=== PATIENT | male | born 1975 | race Caucasian/White ===

== ENCOUNTER 2020-03-12 21:07 | Emergency (ER) | payer OTHER, SELFPAY ==
--- NOTE | 2020-03-12 | XR_ITS ---
EXAMINATION: XR CHEST CLINICAL INFORMATION: Shortness of breath COMPARISON: Chest x-ray 09/23/2016 TECHNIQUE: Frontal view of the chest was obtained. 9:27 PM FINDINGS: Lung volume is low. There is patchy hazy airspace opacities in the lung bilaterally. CT of chest would be helpful for further assessment. There is no focal dense consolidation. There is no pleural effusion. There is no pneumothorax. Cardiac and mediastinal contours are normal. XR/XR chest 1V IMPRESSION: Low lung volume. Patchy hazy airspace opacities of lungs bilateral. CT chest would be helpful for further assessment.
[2020-03-12 21:14] VITALS: BP 139/88; PULSE 94; RESP 16; TEMP 38; O2SAT 94; BMI 32.7
--- NOTE | 2020-03-12 22:13 | ED.GENADULT ---
HPI - General Adult General Chief complaint: General Medical Stated complaint: Fever/Flu like symptoms Time Seen by Provider: 03/12/20 21:58 Source: patient Mode of arrival: ambulatory Limitations: no limitations History of Present Illness HPI narrative: Patient comes to emergency room complaining of cough, fever and chills, it started 6 days ago. Patient denies known exposure to COVID-19 patients. Patient denies shortness of breath, no chest pain. MD complaint: Cough, fever Related Data Previous Rx's Medication Instructions Recorded albuterol sulfate 2 puff INHALATION Q4-6H PRN #18 g 03/12/20 azithromycin 250 mg PO DAILY 4 Days #4 tab 03/12/20 prednisone 50 mg PO DAILY #4 tab 03/12/20 Allergies Allergy/AdvReac Type Severity Reaction Status Date / Time No Known Allergies Allergy Verified 03/12/20 21:22 Review of Systems Review of Systems: Constitutional : No Weight loss, patient complaining of fever, chills, and body aches ENT/Mouth : No Hearing loss, No Ear Pain, No Nasal Congestion, No Sinus Pain, No Hoarseness, No sore throat, No Rhinorrhea, No Swallowing Difficulty Eyes: No Eye Pain, No Swelling, No Redness, No Foreign Body, No Discharge, No Vision Changes Cardiovascular : No Chest Pain, No SOB, No Dyspnea on Exertion, No Orthopnea, No Edema, No Palpitations Respiratory : Complaining of Cough, No Sputum, using his albuterol nebs more frequent than usual Gastrointestinal : No Nausea, No Vomiting, No Diarrhea, No Constipation, No abdominal Pain, No Hematochezia, No Melena Genitourinary : no irregular bleeding, No Dysuria, No Urinary Frequency, No Hematuria, No Urinary Incontinence, No Urgency, No Flank Pain, No Urinary Flow Changes, No Hesitancy Musculoskeletal : No joint pain, No Myalgias, No Joint Swelling Skin : No Skin Lesions, No rash Neuro : No Weakness, No Numbness, No Paresthesias, No Loss of Consciousness, No Dizziness, No Headache Psych : No Anxiety/Panic, No Depression, No SI/HI/AH/VH, No Social Issues, Heme/Lymph: No Bruising, No Bleeding,No Lymphadenopathy Endocrine : No Polyuria, No Polydipsia, No Temperature Intolerance PMFSH Past Medical History Medical History Asthma Social History Social History Smoked in Last 30 Days: No Use of substances other than those prescribed or required for medical reasons: No Advance Directives: No Advance Directives Information Provided: No Physical Exam Vital Signs: Vital Signs: Last Vital Signs Temp 100.4 F 03/12/20 21:14 Pulse 94 03/12/20 21:14 Resp 16 03/12/20 21:14 BP 139/88 03/12/20 21:14 Pulse Ox 94 03/12/20 21:14 Body Mass Index 32.7 Appearance: Alert. Oriented X3. No acute distress. Eyes: Pupils equal, round and reactive to light. ENT: Pharynx normal. Neck: Normal inspection. Neck supple. No lymph nodes noted. No crepitus CVS: Normal heart rate and rhythm. Pulses normal. Normal S1 and S2 Respiratory: No respiratory distress. Breath sounds normal. No Wheezing. No rales Abdomen: Soft and nontender. No rigidity. No distention. good BS x4 Skin: Skin warm and dry. Normal skin color. Normal skin turgor. Extremities: No lower extremity edema. No lower extremity edema. No Lacerations. No Rash Neuro: Oriented X 3. No motor deficit. No sensory deficit. Moving all extermities. No slurred speech. Course Course Course Narrative: I discussed the x-ray with the patient, it is possible that he is developing pneumonia, we will go ahead and treat him for pneumonia. Patient will be discharged with a prescription of azithromycin, prednisone and albuterol. Patient was tested for COVID-19, results will be available within 72 hours. Medical Decision Making Imaging Data Chest x-ray: Radiologist's impression: Lung volume is low. There is patchy hazy airspace opacities in the lung bilaterally. CT of chest would be helpful for further assessment. There is no focal dense consolidation. There is no pleural effusion. There is no pneumothorax. Cardiac and mediastinal contours are normal. XR/XR chest 1V IMPRESSION: Low lung volume. Patchy hazy airspace opacities of lungs bilateral. CT chest would be helpful for further assessment. Discharge Plan Discharge Clinical Impression: Asthma Qualifiers: Asthma severity: unspecified severity Asthma persistence: unspecified Asthma complication type: unspecified Qualified Code(s): J45.909 - Unspecified asthma, uncomplicated Pneumonia Qualifiers: Pneumonia type: due to unspecified organism Laterality: unspecified laterality Lung location: unspecified part of lung Qualified Code(s): J18.9 - Pneumonia, unspecified organism Patient Disposition: Home, Self-Care Instructions: Asthma (ED), Pneumonia (ED) Prescriptions: New azithromycin 250 mg tablet 250 mg PO DAILY 4 Days Qty: 4 RF: 0 prednisone 50 mg tablet 50 mg PO DAILY Qty: 4 RF: 0 albuterol sulfate 90 mcg/actuation HFA aerosol inhaler 2 puff inhalation Q4-6H PRN (Reason: shortness of breath or wheezing) Qty: 18 RF: 0
[2020-03-12] MEDS: Azithromycin 500 MG TABLET PO (22:34)
[2020-03-12] MEDS: predniSONE 20 MG TABLET 60 MG PO (22:34)
== END 2020-03-12 22:58 | disposition home or self-care (01) ==
PROVIDERS: Emergency Provider Emergency Medicine; PCP Internal Medicine
DX: J18.9 Pneumonia, unspecified organism (principal); J45.909 Unspecified asthma, uncomplicated; R05 Cough; R50.9 Fever, unspecified; Z20.828 Contact with and (suspected) exposure to other viral communicable diseases
CPT/HCPCS: 71045; 99283; 99284; U0003

== ENCOUNTER 2022-06-15 19:17 | Emergency (ER) | payer OTHER, SELFPAY ==
--- NOTE | ~2022-06-15 | XR_ITS ---
EXAMINATION: XR CHEST CLINICAL INFORMATION: Cough COMPARISON: Previous chest x-ray most recent February 2020 TECHNIQUE: Frontal view of the chest was obtained. FINDINGS: No significant abnormality is noted involving the heart, lungs, mediastinum, bony thorax or soft tissues. XR/XR chest 1V IMPRESSION: Unremarkable examination.
[2022-06-15 19:44] VITALS: BP 141/85; PULSE 75; RESP 18; TEMP 36.3; O2SAT 98; BMI 31.5
--- NOTE | 2022-06-15 19:44 | ED_ITS ---
HPI - Asthma General Chief Complaint: Upper Respiratory Symptoms <ISAIAH Du - Last Filed: 06/15/22 19:47> Stated Complaint: coughing, abd pain. asthma <ISAIAH Du - Last Filed: 06/15/22 19:47> Time Seen by Provider: 06/15/22 22:11 <ISAIAH Du - Last Filed: 06/15/22 19:47> Source: patient and RN notes reviewed <Waldo Ansari - Last Filed: 06/15/22 22:35> Mode of arrival: ambulatory <Waldo Ansari - Last Filed: 06/15/22 22:35> Limitations: no limitations <Waldo Ansari - Last Filed: 06/15/22 22:35> History of Present Illness HPI Narrative: 47-year-old male past medical history significant for asthma presents for evaluation of shortness of breath. Patient reports 2 days ago he started noticing a scratchy throat? sneezing a lot. ? He states that he has had a persistent cough as having bilateral rib pain when he coughs He reports having chills but has not noticed any fevers has not taken a temperature Patient denies any chest pain Denies any leg swelling In he reports that his boss has been sick over the last week and reports that h is boss' daughter was also sick with similar symptoms The patient has been using his nebulizer machine at home with minimal relief <Waldo Ansari - Last Filed: 06/15/22 22:35> Related Data Home Medications: Previous Rx's Medication Instructions Recorded albuterol sulfate 90 mcg/actuation 2 puff inhalation Q4-6H PRN 03/12/20 aerosol inhaler shortness of breath or wheezing #18 grams azithromycin 250 mg tablet 250 mg PO DAILY 4 days #4 tabs 03/12/20 prednisone 50 mg tablet 50 mg PO DAILY #4 tabs 03/12/20 benzonatate 200 mg capsule 200 mg PO TID PRN cough #20 caps 06/15/22 prednisone 20 mg tablet 40 mg PO DAILY #10 tabs 06/15/22 <ISAIAH Du Last Filed: 06/15/22 19:47> Allergies/Adverse Reactions: Allergies Allergy/AdvReac Type Severity Reaction Status Date / Time No Known Allergies Allergy Verified 06/15/22 19:43 <ISAIAH Du - Last Filed: 06/15/22 19:47> Review of Systems Constitutional: Constitutional: Reports as per HPI, Reports body ache(s), Reports chills, Denies fatigue and Denies fever(s) <Waldo Ansari - Last Filed: 06/15/22 22:35> Cardiovascular: Cardiovascular: Denies chest pain and Reports dyspnea <Waldo Ansari - Last Filed: 06/15/22 22:35> Respiratory: Respiratory: Reports cough and Reports dyspnea <Waldo Ansari - Last Filed: 06/15/22 22:35> Gastrointestinal: Gastrointestinal: Denies abdominal pain, Denies constipation and Denies vomiting <Waldo Ansari - Last Filed: 06/15/22 22:35> Genitourinary: Genitourinary: Denies difficulty urinating and Denies dysuria <Waldo Ansari - Last Filed: 06/15/22 22:35> Endocrine: Endocrine: Denies fatigue <Waldo Ansari - Last Filed: 06/15/22 22:35> [facility] Past Medical History Medical History: Medical History Asthma <ISAIAH Du - Last Filed: 06/15/22 19:47> Social History Social History: Social History Advance Directives: No Advance Directives Information Provided: No <ISAIAH Du - Last Filed: 06/15/22 19:47> Physical Exam Vital Signs: Vital Signs: Last Vital Signs Temp 97.4 F 06/15/22 19:44 Pulse 75 06/15/22 19:44 Resp 18 06/15/22 19:44 BP 141/85 H 06/15/22 19:44 Pulse Ox 98 06/15/22 19:44 O2 Del Method 06/15/22 19:44 BMI result Body Mass Index 31.5 <ISAIAH Du - Last Filed: 06/15/22 19:47> Vital Signs: Last Vital Signs Temp 97.4 F 06/15/22 19:44 Pulse 75 06/15/22 19:44 Resp 18 06/15/22 19:44 BP 141/85 H 06/15/22 19:44 Pulse Ox 98 06/15/22 19:44 O2 Del Method 06/15/22 19:44 BMI result Body Mass Index 31.5 < Last Filed: 06/15/22 22:35> Const: General: healthy appearing, comfortable, no acute distress and well developed < Last Filed: 06/15/22 22:35> Orientation/consciousness: patient oriented x3 < Last Filed: 06/15/22 22:35> Limitations: no limitations < Last Filed: 06/15/22 22:35> HEENT: Head: Yes normocephalic and Yes atraumatic < Last Filed: 06/15/22 22:35> Mouth: Normal oral and palatal mucosa present, tongue normal and moist mucous membranes < Last Filed: 06/15/22 22:35> Throat: Yes posterior oropharynx normal, Yes tonsils normal, Yes uvula midline, No peritonsillar mass and No postnasal drainage < Last Filed: 06/15/22 22:35> Eyes: Conjunctivae: conjunctivae normal < Last Filed: 06/15/22 22:35> Sclerae: sclerae normal < Last Filed: 06/15/22 22:35> Corneas: corneas normal < Last Filed: 06/15/22 22:35> Pupils: Equal, round and reactive pupils present, Pupils normal by confrontation and Pupil accommodation reflex normal < Last Filed: 06/15/22 22:35> EOM: EOMs intact bilaterally < Last Filed: 06/15/22 22:35> Neck: Neck: No lymphadenopathy < Last Filed: 06/15/22 22:35> Resp: Effort & Inspection: normal respiratory effort and able to speak in complete sentences < Last Filed: 06/15/22 22:35> Auscultation: wheezes expiratory wheezes, left lower and right lower; no inspiratory wheezes, lower bilaterally, left upper and right upper <Waldo Ansari - Last Filed: 06/15/22 22:35> Cardio: Jugular venous distension: no JVD <Waldo Ansari - Last Filed: 06/15/22 22:35> Rate: regular rate <Waldoheather Ansari - Last Filed: 06/15/22 22:35> Rhythm: regular rhythm <Waldoheather Ansari Last Filed: 06/15/22 22:35> GI: Palpation (GI): Soft to palpation, nontender and no guarding <Waldo Ansari Last Filed: 06/15/22 22:35> Auscultation: normoactive bowel sounds <Waldo Ansari Last Filed: 06/15/22 22:35> Neuro: General: patient oriented x3 <Waldo Ansari Last Filed: 06/15/22 22:35> Cranial nerves: Yes Equal, round and reactive pupils present <Waldo Ansari Last Filed: 06/15/22 22:35> Course Course Course Narrative: RME-19:45PM 47yoM with a PMHx of asthma who is presenting to the ER with complaints of chills, fatigue, malaise, body aches, nausea and a dry cough with rib cage pain since yesterday worse today. Reports that his boss told him that his daughter was sick with similar symptoms. He denies any other sick contacts that he is aware. He denies any measured fevers, chest pain, shortness of breath, dyspnea on exertion, palpitations, vomiting, abdominal pain or any other symptoms complaints or concerns at this time. Plan: Chest x-ray, COVID/RSV/flu swab. Patient will be sent back to the waiting room to be evaluated in [facility]. <ISAIAH Du - Last Filed: 06/15/22 19:47> Medical Decision Making Medical Decision Making MDM Narrative: 47-year-old male past medical history significant for asthma presents for evaluation of flu-like symptoms x2 days. His vital signs are stable, he is in no respiratory distress. His viral panel is negative and chest x-ray negative for pneumonia. The patient likely still has viral etiology that is not COVID, influenza, or RSV. He has had positive sick contacts eating up to his symptoms. Patient does have bibasilar faint wheezes. We will treat with prednisone and antitussive medication. I have a low suspicion for bacterial etiology will hold antibiotics at this time. <Waldo Ansari - Last Filed: 06/15/22 22:35> Differential Diagnosis Acute asthma exacerbation Bronchitis Pneumonia Influenza COVID <Waldo Ansari - Last Filed: 06/15/22 22:35> Lab Data Labs: Lab Results 06/15/22 Range/Units 19:55 Influenza Type A (PCR) NEGATIVE (Negative) Influenza Type B (PCR) NEGATIVE (Negative) RSV RNA Qual (PCR) NEGATIVE (Negative) SARS-CoV-2 RNA (RT-PCR) NEGATIVE (Negative) <ISAIAH Du - Last Filed: 06/15/22 19:47> Lab Results 06/15/22 Range/Units 19:55 Influenza Type A (PCR) NEGATIVE (Negative) Influenza Type B (PCR) NEGATIVE (Negative) RSV RNA Qual (PCR) NEGATIVE (Negative) SARS-CoV-2 RNA (RT-PCR) NEGATIVE (Negative) <Waldo Ansari - Last Filed: 06/15/22 22:35> Independent Interpretation I performed an independent interpretation of an: Plain X-Ray <Waldo Ansari - Last Filed: 06/15/22 22:35> Interpretation: Agree with interpretation of no acute cardiothoracic pathology. <Waldo Ansari - Last Filed: 06/15/22 22:35> Radiology Impression Discussion of test interpretation with radiology: I have reviewed the radiologist's reading. <Waldo Ansari - Last Filed: 06/15/22 22:35> Prescription Management I considered prescription management with: Other (Corticosteroids and antitussive medication) <Waldo Ansari - Last Filed: 06/15/22 22:35> Discharge Plan Discharge Clinical Impression: Upper respiratory infection, Asthma <ISAIAH Du - Last Filed: 06/15/22 19:47> Patient Disposition: Home, Self-Care <ISAIAH Du - Last Filed: 06/15/22 19:47> Instructions: Upper Respiratory Infection (ED) <ISAIAH Du - Last Filed: 06/15/22 19:47> Additional Instructions: Her symptoms are consistent with a respiratory virus history of mild asthma attack. Take prednisone as directed for the next 5 days Use benzonatate as needed for cough Continue to use your nebulizer is as prescribed Return for new or worsening symptoms <ISAIAH Du - Last Filed: 06/15/22 19:47> Prescriptions: New prednisone 20 mg tablet 40 mg PO DAILY Qty: 10 0RF benzonatate 200 mg capsule 200 mg PO TID PRN (Reason: cough) Qty: 20 0RF No Action azithromycin 250 mg tablet 250 mg PO DAILY 4 Days Qty: 4 0RF prednisone 50 mg tablet 50 mg PO DAILY Qty: 4 0RF albuterol sulfate 90 mcg/actuation HFA aerosol inhaler 2 puff inhalation Q4-6H PRN (Reason: shortness of breath or wheezing) Qty: 18 0RF <ISAIAH Du - Last Filed: 06/15/22 19:47> Stand Alone Forms: Work/School Release <ISAIAH Du - Last Filed: 06/15/22 19:47>
[2022-06-15 20:37] LABS: Influenza A PCR NEGATIVE (Negative); Influenza B PCR NEGATIVE (Negative); Resp Syncy Virus RNA Qual PCR NEGATIVE (Negative); SARS COV2 PCR INHOUSE NEGATIVE (Negative)
== END 2022-06-15 22:41 | disposition home or self-care (01) ==
PROVIDERS: Physician Assistant Medical; Emergency Provider Emergency Medicine
DX: J06.9 Acute upper respiratory infection, unspecified (principal); J45.909 Unspecified asthma, uncomplicated; Z20.822 Contact with and (suspected) exposure to COVID-19; Z20.828 Contact with and (suspected) exposure to other viral communicable diseases; Z79.899 Other long term (current) drug therapy
CPT/HCPCS: 0241U; 71045; 99282; 99283

== ENCOUNTER 2022-07-28 08:47 | Emergency (ER) | payer OTHER, SELFPAY ==
[2022-07-28 09:06] VITALS: BP 158/97; PULSE 76; RESP 16; TEMP 36.9; O2SAT 97; BMI 32.3
--- NOTE | 2022-07-28 09:08 | ED.EYEPROB ---
HPI - Eye Problem General Chief complaint: Eye Problems Stated complaint: L eye irritation Time Seen by Provider: 07/28/22 09:01 Source: patient and RN notes reviewed Mode of arrival: ambulatory Limitations: no limitations History of Present Illness HPI Narrative: This is a [id number]-male, with a past medical history of asthma, who presents to the emergency department with complaints of left eye redness and discomfort since today. Patient states that while he was brushing his teeth he started to feel as though his left eye had something in it and became itchy. He states that gradually over the morning, his left eye became increasingly red, itchy, and irritated. He states that he does not believe there is a foreign body in his left eye. Denies any fevers, chills, sore throat, runny nose, or cough. He does not wear contact lenses. He denies any other complaints or concerns at this time. MD chief complaint: eye redness Onset (ago): hour(s) Duration: constant and progressively worsening Location: left eye Eye Symptoms: redness, foreign body sensation, itching, discharge and photophobia Place: home Mechanism: none Severity: mild If Pain, Quality: aching Associated symptoms: none Treatments Prior to Arrival: irrigated eye Related Data Previous Rx's Medication Instructions Recorded albuterol sulfate 90 mcg/actuation 2 puff inhalation Q4-6H PRN 03/12/20 aerosol inhaler shortness of breath or wheezing #18 grams azithromycin 250 mg tablet 250 mg PO DAILY 4 days #4 tabs 03/12/20 prednisone 50 mg tablet 50 mg PO DAILY #4 tabs 03/12/20 benzonatate 200 mg capsule 200 mg PO TID PRN cough #20 caps 06/15/22 prednisone 20 mg tablet 40 mg PO DAILY #10 tabs 06/15/22 amoxicillin 875 mg-potassium 1 tab PO BID #14 tabs 07/28/22 clavulanate 125 mg tablet sulfacetamide sodium 10 % eye drops 1 drp ophthalmic (eye) Q4H 7 days 07/28/22 #15 mL timolol 0.25 % eye drops 1 drp ophthalmic (eye) DAILY #5 mL 07/28/22 Allergies Allergy/AdvReac Type Severity Reaction Status Date / Time No Known Allergies Allergy Verified 07/28/22 09:08 Review of Systems Review of Systems: Yes all other systems are reviewed and are negative PMFSH Past Medical History Attestation statement: The following information was validated with the patient. Medical History Asthma Social History Social History Alcohol intake: current Alcohol intake frequency: holidays/special occasions only Alcohol type: beer and wine Advance Directives: No Advance Directives Information Provided: No Physical Exam Vital Signs: Vital Signs: Last Vital Signs Temp 98.3 F 07/28/22 10:00 Pulse 72 07/28/22 10:00 Resp 18 07/28/22 10:00 BP 152/89 H 07/28/22 10:00 Pulse Ox 95 07/28/22 10:00 O2 Del Method Room Air 07/28/22 10:00 BMI result Body Mass Index 32.3 General: Awake, alert, and oriented X3. No acute distress. HEENT: Normal inspection. Left eye conjunctiva is injected. No obvious foreign body noted to the eye. No swelling to the eyelids. Fluorescein stain with diffuse uptake throughout the entire conjunctiva. mild scleral swelling noted. PERRL, EOMI. Left eye pressure 26mmHg, Right Eye 18mmHg. CVS: Normal heart rate and rhythm. Pulses normal. S1S2 regular, no mumurs, rubs or gallops. Respiratory: No respiratory distress, Lungs clear to auscultation bilaterally. Skin: Warm, dry, no rashes noted to exposed skin. Normal skin color. Normal skin turgor. Extremities: Normal inspection Neuro: Oriented X 3. No motor deficit. No sensory deficit. Medications Administered Discontinued Medications Generic Name Dose Route Start Last Admin Trade Name Fay PRN Reason Stop Dose Admin Fluorescein Sodium 1 strip 07/28/22 09:08 07/28/22 09:21 Fluorescein Sodium Strip EYE-LEFT 07/28/22 09:09 1 strip ONCE ONE Administration Tetracaine HCl 3 drop 07/28/22 09:08 07/28/22 09:21 Tetracaine Hcl/Pf 0.5% Oph Anitha 4 Ml Drops EYE-LEFT 07/28/22 09:09 3 drop ONCE ONE Administration Medical Decision Making Medical Decision Making MDM Narrative: This is a [id number]-male, with a past medical history of asthma, who presents to the emergency department with complaints of left eye redness and discomfort since today. No foreign body noted to the left eye. Fluorescein exam with diffuse uptake throughout the entire eye with no localized uptake. Eye pressures in right eye 18mmHg, left eye 26mmHg. Patient educated that this is a borderline pressure and that this is likely due to current irritation. Patient discharged on bleph-10, given referral to Dr. Nunez for pressure recheck. Visual acuity performed, WNL. Patient understands and agrees with plan. Plan: Obtain eye pressures and fluorescein eye examination. Differential Diagnosis Differential Diagnoses: The differential diagnosis associated with the presentation includes conjunctivitis, corneal abrasion, iritis, glaucoma - unlikely Prescription Management I considered prescription management with: Antibiotic Critical Care Time Critical Care Time Critical Care Time: No Discharge Plan Discharge Clinical Impression: Bacterial conjunctivitis Patient Disposition: Home, Self-Care Instructions: Conjunctivitis (ED) Additional Instructions: Use antibiotic eye drops as directed. Wash your hands frequently as this can be contagious. You may take over the counter ibuprofen/tylenol as needed for pain relief. Your eye pressure was borderline elevated (26mmHg), please follow up with an eye doctor for a pressure recheck once your symptoms resolve. If any new or worsening symptoms occur, please return for further evaluation. Prescriptions: New sulfacetamide sodium 10 % drops 1 drp ophthalmic (eye) Q4H 7 Days Qty: 15 0RF No Action azithromycin 250 mg tablet 250 mg PO DAILY 4 Days Qty: 4 0RF prednisone 50 mg tablet 50 mg PO DAILY Qty: 4 0RF albuterol sulfate 90 mcg/actuation HFA aerosol inhaler 2 puff inhalation Q4-6H PRN (Reason: shortness of breath or wheezing) Qty: 18 0RF prednisone 20 mg tablet 40 mg PO DAILY Qty: 10 0RF benzonatate 200 mg capsule 200 mg PO TID PRN (Reason: cough) Qty: 20 0RF timolol 0.25 % drops 1 drp ophthalmic (eye) DAILY Qty: 5 0RF amoxicillin-pot clavulanate 875-125 mg tablet 1 tab PO BID Qty: 14 0RF Referrals: Keanu Nunez [Physician] - Stand Alone Forms: Work/School Release Interventions: ED Discharge Assessment Last Done: 07/28/22 10:00 Discharge Date/Time: 07/28/22 10:01
--- NOTE | 2022-07-28 09:11 | PC.NURSE ---
patient woke was washing his face and began having pain in left eye, sclera noted to be red, pt states he has 8/10 pain in that eye. pt awaiting provider, vss, call morales within reach, will continue to monitor.
[2022-07-28] MEDS: Fluorescein Sodium STRIP 1 STRIP EYE-LEFT (09:21)
[2022-07-28] MEDS: Tetracaine HCl/PF 0.5% Oph Sol 4 ML DROPS 3 DROP EYE-LEFT (09:21)
[2022-07-28 10:00] VITALS: BP 152/89; PULSE 72; RESP 18; TEMP 36.8; O2SAT 95
== END 2022-07-28 10:01 | disposition home or self-care (01) ==
PROVIDERS: Emergency Provider Emergency Medicine Emergency Medical Services
DX: H10.9 Unspecified conjunctivitis (principal); H57.12 Ocular pain, left eye
CPT/HCPCS: 99283; 99284

== ENCOUNTER 2022-07-28 13:17 | Emergency (ER) | payer OTHER, SELFPAY ==
--- NOTE | ~2022-07-28 | CT_ITS ---
EXAMINATION: CT ORBIT WITH CONTRAST CLINICAL INFORMATION: Rule out left orbital cellulitis. COMPARISON: None available. TECHNIQUE: CT of the orbit was performed following the intravenous administration of 85 mL of Omnipaque 350. Multiplanar reformats were rendered and reviewed. This CT examination was performed using dose optimization techniques as appropriate, variously including the following: *Automated exposure control *Adjustment of mA and/or kV according to patient size (this includes techniques or standardized protocols for targeted exams where dose is matched to indication/reason for exam; i.e. extremities or head) *Use of iterative reconstruction technique DLP: 248 mGy-cm FINDINGS: There is left-sided preseptal soft tissue swelling with stranding within the subcutaneous fat extending along the left malar eminence. There is no retrobulbar involvement. The lacrimal glands are normal in size. The globes are normal in appearance. No proptosis. The extraocular muscles are normal in appearance and symmetric bilaterally. No intraorbital mass or hematoma. There is no reticulation or infiltration of the retrobulbar fat. The optic nerve sheath complexes are normal and symmetric bilaterally. There is no fracture. The superior ophthalmic veins are normal in size. The cavernous sinuses demonstrate normal and symmetric enhancement. The visualized portions of the intracranial contents appear normal. CT/CT orbit BI w IV con IMPRESSION: Left-sided preseptal cellulitis. No evidence of post septal involvement.
[2022-07-28 13:41] VITALS: BP 148/93; PULSE 72; RESP 19; TEMP 36.7; O2SAT 96; BMI 32.3
--- NOTE | 2022-07-28 13:41 | ED.GENADULT ---
HPI - General Adult General Chief complaint: Eye Problems <ISAIAH Moon Last Filed: 07/28/22 13:42> Stated complaint: Eye swelling here this morning <ISAIAH Moon Last Filed: 07/28/22 13:42> Time Seen by Provider: 07/28/22 15:05 <ISAIAH Moon Last Filed: 07/28/22 13:42> Source: patient and RN notes reviewed <ISAIAH Santana Last Filed: 07/28/22 19:28> Mode of arrival: ambulatory <ISAIAH Santana Last Filed: 07/28/22 19:28> Limitations: no limitations <ISAIAH Santana Last Filed: 07/28/22 19:28> History of Present Illness HPI narrative: This is a [id number], with a past medical history of asthma, who presents to the emergency department with complaints of left eye redness and discomfort since today. [place] [facility] [place], diagnosed with conjunctivitis, discharged on Bleph 10 antibiotic eyedrops, and presents now with his left eye swollen shut. He was discharged earlier today with antibiotic eyedrops however he was not able to pick them up at the pharmacy as he reports they were not there. He reports that when he went home he placed more lubricating eyedrops in his left eye and fell asleep. He then woke up in his left eye was swollen shut. Denies any fevers, chills, sore throat, runny nose, or cough. He does not wear contact lenses. He denies any other complaints or concerns at this time. <ISAIAH Santana Last Filed: 07/28/22 19:28> MD complaint: Left eye swelling <ISAIAH Santana Last Filed: 07/28/22 19:28> Onset (ago): hour(s) <ISAIAH Santana Last Filed: 07/28/22 19:28> Severity: moderate <ISAIAH Santana Last Filed: 07/28/22 19:28> Quality: burning and aching <ISAIAH Santana Last Filed: 07/28/22 19:28> Pain Consistency: constant <ISAIAH Santana Last Filed: 07/28/22 19:28> Relieving factors: none <ISAIAH Santana - Last Filed: 07/28/22 19:28> Exacerbating factors: none <ISAIAH Santana - Last Filed: 07/28/22 19:28> Associated symptoms: denies other symptoms <ISAIAH Santana - Last Filed: 07/28/22 19:28> Treatments prior to arrival: none <ISAIAH Santana - Last Filed: 07/28/22 19:28> Related Data Home medications: Previous Rx's Medication Instructions Recorded albuterol sulfate 90 mcg/actuation 2 puff inhalation Q4-6H PRN 03/12/20 aerosol inhaler shortness of breath or wheezing #18 grams azithromycin 250 mg tablet 250 mg PO DAILY 4 days #4 tabs 03/12/20 prednisone 50 mg tablet 50 mg PO DAILY #4 tabs 03/12/20 benzonatate 200 mg capsule 200 mg PO TID PRN cough #20 caps 06/15/22 prednisone 20 mg tablet 40 mg PO DAILY #10 tabs 06/15/22 amoxicillin 875 mg-potassium 1 tab PO BID #14 tabs 07/28/22 clavulanate 125 mg tablet sulfacetamide sodium 10 % eye drops 1 drp ophthalmic (eye) Q4H 7 days 07/28/22 #15 mL timolol 0.25 % eye drops 1 drp ophthalmic (eye) DAILY #5 mL 07/28/22 <ISAIAH Moon - Last Filed: 07/28/22 13:42> Allergies/adverse reactions: Allergies Allergy/AdvReac Type Severity Reaction Status Date / Time No Known Allergies Allergy Verified 07/28/22 09:08 <ISAIAH Moon - Last Filed: 07/28/22 13:42> Review of Systems Review of Systems: Yes all other systems are reviewed and are negative <ISAIAH Santana - Last Filed: 07/28/22 19:28> [facility] Past Medical History Attestation statement: The following information was validated with the patient. <ISAIAH Santana - Last Filed: 07/28/22 19:28> Medical History: Medical History Asthma <ISAIAH Moon - Last Filed: 07/28/22 13:42> Social History Social History: Social History Alcohol intake: current Alcohol intake frequency: holidays/special occasions only Alcohol type: beer and wine Advance Directives: No Advance Directives Information Provided: No <ISAIAH Moon Last Filed: 07/28/22 13:42> Physical Exam ED Vital Signs: Vital Signs - 24 hr 07/28/22 13:41 07/28/22 18:13 Temperature 98.0 F Pulse Rate 72 81 Respiratory Rate 19 16 Blood Pressure 148/93 H 135/80 Pulse Oximetry 96 97 Oxygen Delivery Method Room Air Room Air BMI result Body Mass Index 32.3 <ISAIAH Moon Last Filed: 07/28/22 13:42> Vital Signs - 24 hr 07/28/22 13:41 07/28/22 18:13 Temperature 98.0 F Pulse Rate 72 81 Respiratory Rate 19 16 Blood Pressure 148/93 H 135/80 Pulse Oximetry 96 97 Oxygen Delivery Method Room Air Room Air BMI result Body Mass Index 32.3 <ISAIAH Santana Last Filed: 07/28/22 19:28> General: Awake, alert, and oriented X3. No acute distress. HEENT: Left eye swollen shut. Upper and lower left eyelid edematous. Pupils are equal and brisk reactive, left pupil is reactive and brisk. Chemosis of the sclera noted.No pain with extraoccular movements. Purulent drainage from left eye upon the top and lower eyelid. Left eye pressure 35 mmHg, right eye pressure 20 mmHg CVS: Normal heart rate and rhythm. Pulses normal. S1S2 regular. Respiratory: No respiratory distress, lungs clear to auscultation bilaterally Skin: Warm, dry, no rashes noted to exposed skin. Normal skin color. Normal skin turgor. Extremities: Normal inspection Neuro: Oriented X 3. No motor deficit. No sensory deficit. <ISAIAH Santana Last Filed: 07/28/22 19:28> Course Course Course Narrative: RME performed by Lucia Denton PA-C. Patient is a 47 year old male presenting to the emergency department for left eye swelling. Patient states that he was seen this morning but his eye is now getting worse. Patient placed back in the waiting room pending results and room availability. <ISAIAH Moon - Last Filed: 07/28/22 13:42> Medications Administered Discontinued Medications Generic Name Dose Route Start Last Admin Trade Name Freq PRN Reason Stop Dose Admin Ceftriaxone Sodium 2 gm/ 50 mls @ 100 mls/hr 07/28/22 15:40 07/28/22 16:33 Sodium Chloride IV 07/28/22 16:09 Infused ONCE ONE Infusion Iohexol 100 ml 07/28/22 17:47 07/28/22 17:48 Iohexol 350 Mg/Ml 100 Ml Infus..Btl IV 07/28/22 17:48 85 ml ONCE ONE Administration Tetracaine HCl 1 drop 07/28/22 15:39 07/28/22 16:05 Tetracaine Hcl/Pf 0.5% Oph Anitha 4 Ml Drops EYE-LEFT 07/28/22 15:40 1 drop ONCE ONE Administration <ISAIAH Moon - Last Filed: 07/28/22 13:42> Medications Administered Discontinued Medications Generic Name Dose Route Start Last Admin Trade Name Freq PRN Reason Stop Dose Admin Ceftriaxone Sodium 2 gm/ 50 mls @ 100 mls/hr 07/28/22 15:40 07/28/22 16:33 Sodium Chloride IV 07/28/22 16:09 Infused ONCE ONE Infusion Iohexol 100 ml 07/28/22 17:47 07/28/22 17:48 Iohexol 350 Mg/Ml 100 Ml Infus..Btl IV 07/28/22 17:48 85 ml ONCE ONE Administration Tetracaine HCl 1 drop 07/28/22 15:39 07/28/22 16:05 Tetracaine Hcl/Pf 0.5% Oph Anitha 4 Ml Drops EYE-LEFT 07/28/22 15:40 1 drop ONCE ONE Administration <ISAIAH Santana - Last Filed: 07/28/22 19:28> Medical Decision Making Medical Decision Making MDM Narrative: 47 yo M, with no known past medical history, who presents today for evaluation of left eye redness, irritation, swollen left eye since today. Patient was seen earlier today, dx on Bleph-10 for treatment of conjunctivitis which was not at the pharmacy. Patient returns today with significant edema, left eye swollen shut. Chemosis noted to the left eye. Eye pressures Left eye 35mmHg, right eye 20mmHg. CT orbital showed preseptal cellulitis. Patient given dose of ceftriaxone. Discussed case Dr. Nunez, who suggests to start patient on timolol drops once in the morning and to treat with Augmentin. Eye pressures are likely elevated due to the swelling in the eyelids. Advised to call his office on sunday for close follow up and repeat eye pressures. Educated patient on the warning signs of when to return. Patient understands and agrees with plan. <ISAIAH Santana - Last Filed: 07/28/22 19:28> Differential Diagnosis Differential Diagnoses: The differential diagnosis associated with the presentation includes <ISAIAH Santana - Last Filed: 07/28/22 19:28> conjunctivitis, preseptal cellulitis, orbital cellulitis, iritis <ISAIAH Santana - Last Filed: 07/28/22 19:28> Consult Healthcare Provider Management of the patient was discussed with: Costume Shop Manager <ISAIAH Santana - Last Filed: 07/28/22 19:28> Dr. Nunez <ISAIAH Santana - Last Filed: 07/28/22 19:28> Lab Data MDM Lab Attestation statement: I reviewed the patient's lab results. <ISAIAH Santana - Last Filed: 07/28/22 19:28> Result Diagrams: 07/28/22 15:55 07/28/22 15:55 <ISAIAH Moon - Last Filed: 07/28/22 13:42> Labs: Lab Results 07/28/22 07/28/22 07/28/22 Range/Units 15:55 15:55 15:55 WBC 8.5 (4.8-10.8) X10*3/uL RBC 5.41 (4.60-5.80) X10*6/uL Hgb 16.8 (14.0-18.0) g/dl Hct 47.7 (42.0-52.0) % MCV 88.2 (80.0-98.0) fL MCH 31.1 (27.0-33.0) pg MCHC 35.2 (31.0-36.0) g/dl RDW 12.7 (11.0-16.0) % Plt Count 341 (160-400) X10*3/uL MPV 8.6 L (9.4-12.4) fL Immature Gran % (Auto) 0.2 (0.0-0.4) % Neut % (Auto) 50.0 (45-73) % Lymph % (Auto) 35.4 (20-40) % [place] % (Auto) 9.2 (2-11) % Eos % (Auto) 4.6 H (0-4) % Baso % (Auto) 0.6 (0-2) % Lymph # (Auto) 3.0 (1.2-4.9) X10*3/uL [place] # (Auto) 0.8 (0.1-1.2) X10*3/uL Eos # (Auto) 0.4 (0.0-0.4) X10*3/uL Baso # (Auto) 0.1 (0.0-0.2) X10*3/uL Abs Immat Gran (auto) 0.02 (0.00-0.03) X10*3/uL Absolute Neuts (auto) 4.2 (2.0-8.3) x10*3/uL Absolute Nucleated RBC 0.000 (0.0-0.012) X10*3/uL Nucleated RBC % (auto) 0.0 (0.0-0.2) /100WBC ESR (0-15) MM/HR Sodium 141 (135-145) mmol/L Potassium 3.9 (3.3-5.1) mmol/L Chloride 103 (96-108) mmol/L Carbon Dioxide 27 (22-29) mmol/L Anion Gap 15 (12-20) BUN 10 (9-16) mg/dL Creatinine 0.87 (0.5-1.4) mg/dL Estim Creat Clear Calc 128.3 Estimated GFR > 60 Random Glucose 84 (60-115) mg/dL Lactic Acid 1.5 (0.5-2.0) mmol/L Calcium 9.3 (8.4-10.2) mg/dL 07/28/22 Range/Units 15:55 WBC (4.8-10.8) X10*3/uL RBC (4.60-5.80) X10*6/uL Hgb (14.0-18.0) g/dl Hct (42.0-52.0) % MCV (80.0-98.0) fL MCH (27.0-33.0) pg MCHC (31.0-36.0) g/dl RDW (11.0-16.0) % Plt Count (160-400) X10*3/uL MPV (9.4-12.4) fL Immature Gran % (Auto) (0.0-0.4) % Neut % (Auto) (45-73) % Lymph % (Auto) (20-40) % [place] % (Auto) (2-11) % Eos % (Auto) (0-4) % Baso % (Auto) (0-2) % Lymph # (Auto) (1.2-4.9) X10*3/uL [place] # (Auto) (0.1-1.2) X10*3/uL Eos # (Auto) (0.0-0.4) X10*3/uL Baso # (Auto) (0.0-0.2) X10*3/uL Abs Immat Gran (auto) (0.00-0.03) X10*3/uL Absolute Neuts (auto) (2.0-8.3) x10*3/uL Absolute Nucleated RBC (0.0-0.012) X10*3/uL Nucleated RBC % (auto) (0.0-0.2) /100WBC ESR 2 (0-15) MM/HR Sodium (135-145) mmol/L Potassium (3.3-5.1) mmol/L Chloride (96-108) mmol/L Carbon Dioxide (22-29) mmol/L Anion Gap (12-20) BUN (9-16) mg/dL Creatinine (0.5-1.4) mg/dL Estim Creat Clear Calc Estimated GFR Random Glucose (60-115) mg/dL Lactic Acid (0.5-2.0) mmol/L Calcium (8.4-10.2) mg/dL <ISAIAH Moon - Last Filed: 07/28/22 13:42> Lab Results 07/28/22 07/28/22 07/28/22 Range/Units 15:55 15:55 15:55 WBC 8.5 (4.8-10.8) X10*3/uL RBC 5.41 (4.60-5.80) X10*6/uL Hgb 16.8 (14.0-18.0) g/dl Hct 47.7 (42.0-52.0) % MCV 88.2 (80.0-98.0) fL MCH 31.1 (27.0-33.0) pg MCHC 35.2 (31.0-36.0) g/dl RDW 12.7 (11.0-16.0) % Plt Count 341 (160-400) X10*3/uL MPV 8.6 L (9.4-12.4) fL Immature Gran % (Auto) 0.2 (0.0-0.4) % Neut % (Auto) 50.0 (45-73) % Lymph % (Auto) 35.4 (20-40) % [place] % (Auto) 9.2 (2-11) % Eos % (Auto) 4.6 H (0-4) % Baso % (Auto) 0.6 (0-2) % Lymph # (Auto) 3.0 (1.2-4.9) X10*3/uL [place] # (Auto) 0.8 (0.1-1.2) X10*3/uL Eos # (Auto) 0.4 (0.0-0.4) X10*3/uL Baso # (Auto) 0.1 (0.0-0.2) X10*3/uL Abs Immat Gran (auto) 0.02 (0.00-0.03) X10*3/uL Absolute Neuts (auto) 4.2 (2.0-8.3) x10*3/uL Absolute Nucleated RBC 0.000 (0.0-0.012) X10*3/uL Nucleated RBC % (auto) 0.0 (0.0-0.2) /100WBC ESR (0-15) MM/HR Sodium 141 (135-145) mmol/L Potassium 3.9 (3.3-5.1) mmol/L Chloride 103 (96-108) mmol/L Carbon Dioxide 27 (22-29) mmol/L Anion Gap 15 (12-20) BUN 10 (9-16) mg/dL Creatinine 0.87 (0.5-1.4) mg/dL Estim Creat Clear Calc 128.3 Estimated GFR > 60 Random Glucose 84 (60-115) mg/dL Lactic Acid 1.5 (0.5-2.0) mmol/L Calcium 9.3 (8.4-10.2) mg/dL 07/28/22 Range/Units 15:55 WBC (4.8-10.8) X10*3/uL RBC (4.60-5.80) X10*6/uL Hgb (14.0-18.0) g/dl Hct (42.0-52.0) % MCV (80.0-98.0) fL MCH (27.0-33.0) pg MCHC (31.0-36.0) g/dl RDW (11.0-16.0) % Plt Count (160-400) X10*3/uL MPV (9.4-12.4) fL Immature Gran % (Auto) (0.0-0.4) % Neut % (Auto) (45-73) % Lymph % (Auto) (20-40) % [place] % (Auto) (2-11) % Eos % (Auto) (0-4) % Baso % (Auto) (0-2) % Lymph # (Auto) (1.2-4.9) X10*3/uL [place] # (Auto) (0.1-1.2) X10*3/uL Eos # (Auto) (0.0-0.4) X10*3/uL Baso # (Auto) (0.0-0.2) X10*3/uL Abs Immat Gran (auto) (0.00-0.03) X10*3/uL Absolute Neuts (auto) (2.0-8.3) x10*3/uL Absolute Nucleated RBC (0.0-0.012) X10*3/uL Nucleated RBC % (auto) (0.0-0.2) /100WBC ESR 2 (0-15) MM/HR Sodium (135-145) mmol/L Potassium (3.3-5.1) mmol/L Chloride (96-108) mmol/L Carbon Dioxide (22-29) mmol/L Anion Gap (12-20) BUN (9-16) mg/dL Creatinine (0.5-1.4) mg/dL Estim Creat Clear Calc Estimated GFR Random Glucose (60-115) mg/dL Lactic Acid (0.5-2.0) mmol/L Calcium (8.4-10.2) mg/dL <ISAIAH Santana Last Filed: 07/28/22 19:28> Independent Interpretation I performed an independent interpretation of an: CT Scan <ISAIAH Santana Last Filed: 07/28/22 19:28> Radiology Impression Discussion of test interpretation with radiology: I have reviewed the radiologist's reading. <ISAIAH Santana Last Filed: 07/28/22 19:28> Radiologist Impression: FINDINGS: There is left-sided preseptal soft tissue swelling with stranding within the subcutaneous fat extending along the left malar eminence. There is no retrobulbar involvement. The lacrimal glands are normal in size. The globes are normal in appearance. No proptosis. The extraocular muscles are normal in appearance and symmetric bilaterally. No intraorbital mass or hematoma. There is no reticulation or infiltration of the retrobulbar fat. The optic nerve sheath complexes are normal and symmetric bilaterally. There is no fracture. The superior ophthalmic veins are normal in size. The cavernous sinuses demonstrate normal and symmetric enhancement. The visualized portions of the intracranial contents appear normal. CT/CT orbit BI w IV con IMPRESSION: Left-sided preseptal cellulitis. No evidence of post septal involvement.? <ISAIAH Santana - Last Filed: 07/28/22 19:28> Discharge Plan Discharge Clinical Impression: Preseptal cellulitis <ISAIAH Moon Last Filed: 07/28/22 13:42> Patient Disposition: Home, Self-Care <ISAIAH Moon Last Filed: 07/28/22 13:42> Instructions: Periorbital Cellulitis in Adults (ED) <ISAIAH Moon Last Filed: 07/28/22 13:42> Additional Instructions: Take the oral antibiotic as directed. Use the Timolol eye drop once in the morning. Keep your head elevated when laying down. You may apply an ice pack to your left eye for relief. Call Dr. Nunez's office on sunday morning to follow up regarding this visit. Watch for any worsening symptoms including but not limited to - changes in vision, eye pain, inability to move your eye, worsening swelling, fevers. If any of these occur, please return. <ISAIAH Moon - Last Filed: 07/28/22 13:42> Prescriptions: New timolol 0.25 % drops 1 drp ophthalmic (eye) DAILY Qty: 5 0RF amoxicillin-pot clavulanate 875-125 mg tablet 1 tab PO BID Qty: 14 0RF No Action azithromycin 250 mg tablet 250 mg PO DAILY 4 Days Qty: 4 0RF prednisone 50 mg tablet 50 mg PO DAILY Qty: 4 0RF albuterol sulfate 90 mcg/actuation HFA aerosol inhaler 2 puff inhalation Q4-6H PRN (Reason: shortness of breath or wheezing) Qty: 18 0RF prednisone 20 mg tablet 40 mg PO DAILY Qty: 10 0RF benzonatate 200 mg capsule 200 mg PO TID PRN (Reason: cough) Qty: 20 0RF sulfacetamide sodium 10 % drops 1 drp ophthalmic (eye) Q4H 7 Days Qty: 15 0RF <ISAIAH Moon - Last Filed: 07/28/22 13:42> Referrals: Keanu Nunez [Physician] - <ISAIAH Moon - Last Filed: 07/28/22 13:42> Stand Alone Forms: Work/School Release <ISAIAH Moon - Last Filed: 07/28/22 13:42> Interventions: ED Discharge Assessment Last Done: 07/28/22 18:50 <ISAIAH Moon - Last Filed: 07/28/22 13:42> Discharge Date/Time: 07/28/22 18:51 <ISAIAH Moon - Last Filed: 07/28/22 13:42>
[2022-07-28 16:01] LABS: MANUAL DIFF FLAG NO
[2022-07-28 16:04] LABS: Basophils Absolute Auto 0.1 X10*3/uL (0.0-0.2); Basophils Percent Auto 0.6 % (0-2); Eosinophils Absolute Auto 0.4 X10*3/uL (0.0-0.4); Eosinophils Percent Auto 4.6 % (0-4); Hematocrit 47.7 % (42.0-52.0); Hemoglobin 16.8 g/dl (14.0-18.0); Imm Gran Abs Auto 0.02 X10*3/uL (0.00-0.03); Imm Gran Pct Auto 0.2 % (0.0-0.4); Lymphocytes Percent Auto 35.4 % (20-40); Mean Corpuscular HGB Conc 35.2 g/dl (31.0-36.0); Mean Corpuscular Hemoglobin 31.1 pg (27.0-33.0); Mean Corpuscular Volume 88.2 fL (80.0-98.0); Mean Platelet Volume 8.6 fL (9.4-12.4); Monocytes Absolute Auto 0.8 X10*3/uL (0.1-1.2); Monocytes Percent Auto 9.2 % (2-11); Neutrophils Absolute Auto 4.2 x10*3/uL (2.0-8.3); Platelet Count 341 X10*3/uL (160-400); Red Blood Count 5.41 X10*6/uL (4.60-5.80); Red Cell Distribution Width 12.7 % (11.0-16.0); White Blood Count 8.5 X10*3/uL (4.8-10.8)
[2022-07-28] MEDS: Tetracaine HCl/PF 0.5% Oph Sol 4 ML DROPS 1 DROP EYE-LEFT (16:05)
[2022-07-28] MEDS: cefTRIAXone sodium 2 GM in 0.9 % Sodium Chloride 50 ML IV (16:05)
[2022-07-28 16:17] LABS: Lactic Acid 1.5 mmol/L (0.5-2.0)
[2022-07-28 16:20] LABS: Anion Gap 15 (12-20); Blood Urea Nitrogen 10 mg/dL (9-16); Calcium 9.3 mg/dL (8.4-10.2); Carbon Dioxide 27 mmol/L (22-29); Chloride 103 mmol/L (96-108); Creatinine Clr Calc Pharmacy 128.3; Estimated Glomerular Filt Rate > 60; Glucose Random 84 mg/dL (60-115); Potassium 3.9 mmol/L (3.3-5.1); Sodium 141 mmol/L (135-145)
[2022-07-28 17:12] LABS: Erythrocyte Sedimentation Rate 2 MM/HR (0-15)
[2022-07-28] MEDS: iohexoL 350 MG/ML 100 ML INFUS..BTL IV (17:48)
[2022-07-28 18:13] VITALS: BP 135/80; PULSE 81; RESP 16; O2SAT 97
--- NOTE | 2022-07-28 18:13 | PC.NURSE ---
pt unable to do visual acuity test due to the swelling around his eye and inability to open eye
== END 2022-07-28 18:51 | disposition home or self-care (01) ==
PROVIDERS: Physician Assistant Medical; Emergency Provider Emergency Medicine Emergency Medical Services
DX: L03.213 Periorbital cellulitis (principal); H57.12 Ocular pain, left eye
CPT/HCPCS: 36415; 70481; 80048; 83605; 85025; 85652; 86141; 87040; 96365; 99284; J0696; Q9967

== ENCOUNTER 2024-09-03 11:53 | Emergency (ER) | payer OTHER, SELFPAY ==
--- NOTE | ~2024-09-03 | XR_ITS ---
EXAMINATION: XR ANKLE, RIGHT CLINICAL INFORMATION: right ankle swelling, pain COMPARISON: None available. TECHNIQUE: AP, lateral, and mortise views of the right ankle. FINDINGS: No acute cortical disruption or malalignment. No gross joint effusion. No subcutaneous emphysema. No metallic or radiopaque foreign body. No lytic or blastic lesions. XR/XR ankle RT min 3V IMPRESSION: No acute fracture or dislocation. Electronically signed by: Lorenzo Holley MD 09/03/2024 01:25 PM EDT
--- NOTE | ~2024-09-03 | US_ITS ---
EXAMINATION: US TRIPLEX LOWER EXTREMITY, RIGHT CLINICAL INFORMATION: Edema/swelling right lower extremity. COMPARISON: None available. TECHNIQUE: Color-flow triplex imaging with spectral analysis and compression Doppler were performed on the right lower extremity. FINDINGS: Respiratory variation, normal compression and augmented flow are noted throughout the interrogated common femoral vein, superficial femoral vein, profunda femoral vein, popliteal vein and midcalf peroneal and posterior tibial venous segments . There is no Perez's cyst. US/US venous duplex LE RT IMPRESSION: No acute deep venous thrombosis interrogated veins, right lower extremity. Negative for DVT. Electronically signed by: Lorenzo Holley MD 09/03/2024 02:07 PM EDT
[2024-09-03 12:56] VITALS: BP 199/93; PULSE 68; RESP 18; TEMP 36.6; O2SAT 98; BMI 33.1
--- NOTE | 2024-09-03 12:56 | ED.GENADULT ---
HPI - General Adult General Chief complaint: General Medical Stated complaint: R Ankle Pain No Injury Time Seen by Provider: 09/03/24 14:44 Source: patient, RN notes reviewed and old records reviewed Mode of arrival: ambulatory History of Present Illness ED Provider: Erin Sheehan PA-C HPI narrative: 49-year-old male with a past medical history of asthma presenting to the ED complaining of right ankle pain and swelling x4 days. States he was wearing a pair of boots which was irritating in the back of his ankle, suspect this is root cause of symptoms. Denies known history of gout. Denies direct injury, trauma, fall, SOB, CP, numbness, tingling, weakness, fever, history of blood clots, anticoagulation use Related Data Previous Rx's ?Medication ?Instructions ?Recorded albuterol sulfate 90 mcg/actuation 2 puff inhalation Q4-6H PRN 03/12/20 aerosol inhaler shortness of breath or wheezing #18 grams azithromycin 250 mg tablet 250 mg PO DAILY 4 days #4 tabs 03/12/20 prednisone 50 mg tablet 50 mg PO DAILY #4 tabs 03/12/20 benzonatate 200 mg capsule 200 mg PO TID PRN cough #20 caps 06/15/22 prednisone 20 mg tablet 40 mg (2 x 20 mg) PO DAILY #10 tabs 06/15/22 amoxicillin 875 mg-potassium 1 tab PO BID #14 tabs 07/28/22 clavulanate 125 mg tablet sulfacetamide sodium 10 % eye drops 1 drp ophthalmic (eye) Q4H 7 days 07/28/22 #15 mL timolol 0.25 % eye drops 1 drp ophthalmic (eye) DAILY #5 mL 07/28/22 cephalexin 500 mg capsule 500 mg PO QID 7 days #28 caps 09/03/24 prednisone 20 mg tablet 40 mg (2 x 20 mg) PO DAILY 5 days 09/03/24 #10 tabs Allergies Allergy/AdvReac Type Severity Reaction Status Date / Time No Known Allergies Allergy Verified 09/03/24 12:59 Review of Systems Review of Systems: Yes all other systems are reviewed and are negative Constitutional: Constitutional: Reports as per [facility] Past Medical History Attestation statement: The following information was validated with the patient. Source: old records reviewed Medical History Asthma Social History Social History Alcohol intake: current Alcohol intake frequency: holidays/special occasions only Alcohol type: beer and wine Physical Exam ED Vital Signs: Vital Signs - 24 hr 09/03/24 12:56 Temperature 97.8 F Pulse Rate 68 Respiratory Rate 18 Blood Pressure 199/93 H Pulse Oximetry 98 Oxygen Delivery Method Room Air BMI result Body Mass Index 33.1 Const General: cooperative, healthy appearing and no acute distress Orientation/consciousness: patient oriented x3 Limitations: no limitations HENMT Head: Yes normal to inspection and Yes atraumatic Ears: hearing grossly normal bilaterally General nose exam: Normal external nose present Face and sinus: Yes normal facial exam Eyes General: appearance normal, both eyes and all related structures EOM: EOMs intact bilaterally Neck Neck: Yes normal visual inspection and Yes no meningeal signs Resp Effort & Inspection: normal respiratory effort and no respiratory distress Cardio Rate: regular rate Skin Rashes: no rashes Wounds: no wounds Neuro General: patient oriented x3, tone normal and no meningeal signs Cranial nerves: Yes CN's II-XII intact bilaterally Gait exam (Neuro): Normal gait present Extrem Other: Right ankle > posterior aspect/calcaneus with appreciable swelling/erythema and tenderness to palpation. No warmth. No fluctuance/induration. No ecchymosis. No calf tenderness. No pitting edema. No crepitus. No direct Achilles ttp. Ambulating with limping gait Course Course Course Narrative: This is a Rapid Medical Exam performed in triage by Erin Sheehan PA-C. Full HPI, ROS and PE to be performed by primary ED provider. 49 yo male without significant medical history presenting to the ED c/o 4 days of right ankle pain. He states he has been wearing a pair of boots that has been irritating the back of the ankle where the pain is located. He denies trauma or injury to the ankle. PE: Right posterior ankle over Achilles aspect, mildly erythematous and edematous. No calf TTP Plan: U/S, X-ray, labs -no leukocytosis. Uric acid mildly elevated. CRP minimally elevated. Labs otherwise reassuring. XR ankle RT min 3V IMPRESSION: No acute fracture or dislocation. US venous duplex LE RT IMPRESSION: No acute deep venous thrombosis interrogated veins, right lower extremity. Negative for DVT. > Will treat patient empirically for gout and possible early cellulitis. Maikel wrap applied for compression and comfort. Recommended close PCP follow-up Results discussed with patient including worrisome signs and symptoms and strict return precautions, and when to return to the emergency department. They verbalized understanding and feel safe for discharge at this time. Medical Decision Making Medical Decision Making [facility] Narrative: 49-year-old male with a past medical history of asthma presenting to the ED complaining of right ankle pain and swelling x4 days. On exam hypertensive, NAD, nontoxic appearing, physical exam as noted above. Concern for sprain vs DVT vs gout vs early cellulitis. Low suspicion for septic joint, compartment syndrome, PE, Achilles tendon rupture, fracture Plan: Labs, x-ray, ultrasound Please refer to course for remaining clinical decision making, interpretation of labs/imaging results, and discussions with consultants and/or family members. Differential Diagnosis Differential Diagnoses: The differential diagnosis associated with the presentation includes As above Admission/Observation Consideration of admission/observation: Escalation of care including admission/observation considered Lab Data [facility] Lab Attestation statement: I reviewed the patient's lab results. 09/03/24 13:07 09/03/24 13:07 Labs: Lab Results 09/03/24 Range/Units 13:07 WBC 7.5 (4.8-10.8) X10*3/uL RBC 5.38 (4.60-5.80) X10*6/uL Hgb 16.5 (14.0-18.0) g/dl Hct 47.4 (42.0-52.0) % MCV 88.1 (80.0-98.0) fL MCH 30.7 (27.0-33.0) pg MCHC 34.8 (31.0-36.0) g/dl RDW 13.1 (11.0-16.0) % Plt Count 384 (160-400) X10*3/uL MPV 8.3 L (9.4-12.4) fL Immature Gran % (Auto) 0.1 (0.0-0.4) % Neut % (Auto) 31.2 L (45-73) % Lymph % (Auto) 48.5 H (20-40) % Grimes % (Auto) 14.1 H (2-11) % Eos % (Auto) 5.0 H (0-4) % Baso % (Auto) 1.1 (0-2) % Lymph # (Auto) 3.7 (1.2-4.9) X10*3/uL Grimes # (Auto) 1.1 (0.1-1.2) X10*3/uL Eos # (Auto) 0.4 (0.0-0.4) X10*3/uL Baso # (Auto) 0.1 (0.0-0.2) X10*3/uL Abs Immat Gran (auto) 0.01 (0.00-0.03) X10*3/uL Absolute Neuts (auto) 2.4 (2.0-8.3) x10*3/uL Absolute Nucleated RBC 0.000 (0.0-0.012) X10*3/uL Nucleated RBC % (auto) 0.0 (0.0-0.2) /100WBC ESR 9 (0-15) MM/HR Sodium 143 (135-145) mmol/L Potassium 4.9 (3.3-5.1) mmol/L Chloride 106 (96-108) mmol/L Carbon Dioxide 28 (22-29) mmol/L Anion Gap 14 (12-20) BUN 13 (9-16) mg/dL Creatinine 0.86 (0.5-1.4) mg/dL Estim Creat Clear Calc 128.6 Estimated GFR > 60 Random Glucose 90 (60-115) mg/dL Uric Acid 8.4 H (3.4-7.0) mg/dL Calcium 9.9 D (8.4-10.2) mg/dL Total Bilirubin 0.4 (0.0-1.0) mg/dL Direct Bilirubin 0.1 (0.0-0.5) mg/dL AST 25 (5-37) U/L ALT 41 H (0-40) U/L Alkaline Phosphatase 74 (39-117) U/L C-Reactive Protein 0.82 H (< or = 0.50) mg/dL B-Natriuretic Peptide < 10 (<100) pg/mL Total Protein 8.4 H (6.5-8.0) g/dL Albumin 4.6 (3.5-5.0) g/dL Independent Interpretation I performed an independent interpretation of an: Plain X-Ray Radiology Impression Discussion of test interpretation with radiology: I have reviewed the radiologist's reading. External Record Review External record reviewed: Inpatient record, Office record, Outpatient record, Prior outpatient labs, Prior outpatient radiology, Primary care record and Outside ED record Tests considered The following testing was considered but not selected: As above Prescription Management I considered prescription management with: Pain Medication Chronic Conditions Patient?s care impacted by: Other (asthma) Social Determinants Patient?s care significantly limited by Social Determinants of Health including: Other Social Determinant of Health Discharge Plan Discharge Clinical Impression: Gout Patient Disposition: Home, Self-Care Instructions: Low Purine Diet (ED), Gout (ED) Additional Instructions: Your blood work and imaging is reassuring. Your uric acid level, something we look at for gout was mildly elevated We are treating you empirically for gout as well as a superficial skin infection, cellulitis Prednisone as a steroid please take as prescribed Keflex as an antibiotic please take until completed Wear Maikel wrap for comfort and compression In addition naproxen as an anti-inflammatory/pain medication, take with food. Do not take both naproxen and Advil/Aleve/ibuprofen. Only take 1 You may also take Tylenol If area/pain is worsening, becomes increasingly swollen, red, you are unable to ambulate or you have fever return to the ED Prescriptions: New prednisone 20 mg tablet 40 mg PO DAILY 5 Days Qty: 10 0RF cephalexin 500 mg capsule 500 mg PO QID 7 Days Qty: 28 0RF No Action azithromycin 250 mg tablet 250 mg PO DAILY 4 Days Qty: 4 0RF prednisone 50 mg tablet 50 mg PO DAILY Qty: 4 0RF albuterol sulfate 90 mcg/actuation HFA aerosol inhaler 2 puff inhalation Q4-6H PRN (Reason: shortness of breath or wheezing) Qty: 18 0RF prednisone 20 mg tablet 40 mg PO DAILY Qty: 10 0RF benzonatate 200 mg capsule 200 mg PO TID PRN (Reason: cough) Qty: 20 0RF sulfacetamide sodium 10 % drops 1 drp ophthalmic (eye) Q4H 7 Days Qty: 15 0RF timolol 0.25 % drops 1 drp ophthalmic (eye) DAILY Qty: 5 0RF amoxicillin-pot clavulanate 875-125 mg tablet 1 tab PO BID Qty: 14 0RF Referrals: Physician,None [Primary Care Provider] - 3 days Print Language: Bengali
[2024-09-03 13:11] LABS: MANUAL DIFF FLAG NO
[2024-09-03 13:15] LABS: Basophils Absolute Auto 0.1 X10*3/uL (0.0-0.2); Basophils Percent Auto 1.1 % (0-2); Eosinophils Absolute Auto 0.4 X10*3/uL (0.0-0.4); Hematocrit 47.4 % (42.0-52.0); Hemoglobin 16.5 g/dl (14.0-18.0); Imm Gran Abs Auto 0.01 X10*3/uL (0.00-0.03); Imm Gran Pct Auto 0.1 % (0.0-0.4); Lymphocytes Absolute Auto 3.7 X10*3/uL (1.2-4.9); Lymphocytes Percent Auto 48.5 % (20-40); Mean Corpuscular HGB Conc 34.8 g/dl (31.0-36.0); Mean Corpuscular Hemoglobin 30.7 pg (27.0-33.0); Mean Corpuscular Volume 88.1 fL (80.0-98.0); Mean Platelet Volume 8.3 fL (9.4-12.4); Monocytes Absolute Auto 1.1 X10*3/uL (0.1-1.2); Monocytes Percent Auto 14.1 % (2-11); Neutrophils Absolute Auto 2.4 x10*3/uL (2.0-8.3); Neutrophils Percent Auto 31.2 % (45-73); Platelet Count 384 X10*3/uL (160-400); Red Blood Count 5.38 X10*6/uL (4.60-5.80); Red Cell Distribution Width 13.1 % (11.0-16.0); White Blood Count 7.5 X10*3/uL (4.8-10.8)
[2024-09-03 13:33] LABS: B Type Natriuretic Peptide < 10 pg/mL (<100)
[2024-09-03 13:34] LABS: Alanine Aminotransferase 41 U/L (0-40); Albumin Level 4.6 g/dL (3.5-5.0); Alkaline Phosphatase 74 U/L (39-117); Anion Gap 14 (12-20); Aspartate Amino Transferase 25 U/L (5-37); Bilirubin Direct 0.1 mg/dL (0.0-0.5); Bilirubin Total 0.4 mg/dL (0.0-1.0); Blood Urea Nitrogen 13 mg/dL (9-16); C Reactive Protein 0.82 mg/dL (< or = 0.50); Calcium 9.9 mg/dL (8.4-10.2); Carbon Dioxide 28 mmol/L (22-29); Chloride 106 mmol/L (96-108); Creatinine Clr Calc Pharmacy 128.6; Estimated Glomerular Filt Rate > 60; Glucose Random 90 mg/dL (60-115); Potassium 4.9 mmol/L (3.3-5.1); Sodium 143 mmol/L (135-145); Total Protein 8.4 g/dL (6.5-8.0); Uric Acid 8.4 mg/dL (3.4-7.0)
[2024-09-03 13:54] LABS: Erythrocyte Sedimentation Rate 9 MM/HR (0-15)
[2024-09-03 15:00] VITALS: BP 160/99; PULSE 68; RESP 18; TEMP 36.6; O2SAT 98
== END 2024-09-03 15:03 | disposition home or self-care (01) ==
LOC: HO.ED 14:59
PROVIDERS: Physician Assistant; Emergency Provider Emergency Medicine
DX: M10.071 Idiopathic gout, right ankle and foot (principal); R60.0 Localized edema; M25.571 Pain in right ankle and joints of right foot; Z79.899 Other long term (current) drug therapy
CPT/HCPCS: 36415; 73610; 80048; 80076; 83880; 84550; 85025; 85652; 86140; 93971; 99282; 99284

== ENCOUNTER → 2024-09-03 12:59 | Outpatient (BNV) | payer OTHER, SELFPAY | PROVIDERS: Visit Provider Radiology Diagnostic Radiology | DX: R60.9 Edema, unspecified (principal); M25.571 Pain in right ankle and joints of right foot; R22.42 Localized swelling, mass and lump, left lower limb | CPT/HCPCS: 73610; 93971 ==

== ENCOUNTER 2024-09-10 09:44 | Emergency (ER) | payer OTHER, SELFPAY ==
--- NOTE | ~2024-09-10 | XR_ITS ---
EXAMINATION: XR FOOT, RIGHT CLINICAL INFORMATION: pain, injury COMPARISON: None available. TECHNIQUE: AP, lateral, and oblique views of the right foot. FINDINGS: No fracture, dislocation, or suspicious bone lesion. Normal bone mineralization. Normal alignment. Joint spaces are preserved. No significant arthropathy. There is mild dorsal soft tissue swelling of the midfoot and forefoot. XR/XR foot RT min 3V IMPRESSION: 1. Dorsal soft tissue swelling. No acute bony abnormalities. Electronically signed by: Michael Cadet MD 09/10/2024 10:31 AM EDT
[2024-09-10 09:47] VITALS: BP 162/98; PULSE 74; RESP 16; TEMP 36.6; O2SAT 97; BMI 33.6
--- NOTE | 2024-09-10 09:55 | ED_ITS ---
HPI - General Adult General Chief complaint: Extremity Injury, Lower Stated complaint: R Leg Pain No Injury Time Seen by Provider: 09/10/24 09:54 Source: patient Mode of arrival: ambulatory Limitations: no limitations History of Present Illness ED Provider: Lucia Denton PA-C HPI narrative: Patient is a 49 year old assigned male at with a history of right ankle pain / suspected gout presenting to the emergency department today with right dorsal foot pain. Patient states that 2 weeks ago he had pain in his right ankle that was diagnosed as gout vs. infection and treated with prednisone, NSAIDs, and antibiotics. Patient states that now, the pain is in his right foot. Patient denies any dizziness, lightheadedness, abdominal pain, nausea, vomiting, fever, chills, blurry vision, double vision, loss of vision, chest pain, difficulty breathing, shortness of breath, back pain, night sweats, pain with urination, increased urinary frequency, increased urinary urgency, blood in his urine or stool, syncope or a near syncopal episode, recent trauma or falls, bowel incontinence, bladder incontinence, or any other complaints at this time. Relieving factors: none Exacerbating factors: none Associated symptoms: denies other symptoms Related Data Previous Rx's ?Medication ?Instructions ?Recorded albuterol sulfate 90 mcg/actuation 2 puff inhalation Q4-6H PRN 03/12/20 aerosol inhaler shortness of breath or wheezing #18 grams azithromycin 250 mg tablet 250 mg PO DAILY 4 days #4 tabs 03/12/20 prednisone 50 mg tablet 50 mg PO DAILY #4 tabs 03/12/20 benzonatate 200 mg capsule 200 mg PO TID PRN cough #20 caps 06/15/22 prednisone 20 mg tablet 40 mg (2 x 20 mg) PO DAILY #10 tabs 06/15/22 amoxicillin 875 mg-potassium 1 tab PO BID #14 tabs 07/28/22 clavulanate 125 mg tablet sulfacetamide sodium 10 % eye drops 1 drp ophthalmic (eye) Q4H 7 days 07/28/22 #15 mL timolol 0.25 % eye drops 1 drp ophthalmic (eye) DAILY #5 mL 07/28/22 cephalexin 500 mg capsule 500 mg PO QID 7 days #28 caps 09/03/24 prednisone 20 mg tablet 40 mg (2 x 20 mg) PO DAILY 5 days 09/03/24 #10 tabs prednisone 20 mg tablet 20 mg PO DAILY 7 days #7 tabs 09/10/24 Allergies Allergy/AdvReac Type Severity Reaction Status Date / Time No Known Allergies Allergy Verified 09/10/24 09:50 Review of Systems Constitutional: Constitutional: Reports no additional constitutional complaints, Denies chills, Denies fever(s) and Denies night sweats Eyes: Eyes: Reports no additional eye complaints, Denies blurry vision, Denies change in vision, Denies diplopia, Denies eye discharge, Denies loss of vision and Denies eye pain ENT: Denies dizziness Cardiovascular: Cardiovascular: Reports no additional cardiovascular complaints, Denies chest pain, Denies lightheadedness, Denies Loss of Consciousness and Denies dyspnea Respiratory: Respiratory: Reports no additional respiratory complaints and Denies dyspnea Gastrointestinal: Gastrointestinal: Reports no additional gastrointestinal complaints, Denies abdominal pain, Denies melena, Denies hematochezia, Denies change in bowel habits and Denies change in stool character Genitourinary: Genitourinary: Reports no additional male genitourinary complaints, Denies hematuria, Denies oliguria, Denies difficulty urinating, Denies dysuria, Denies urinary frequency, Denies urinary hesitancy, Denies urinary incontinence and Denies urinary urgency Musculoskeletal: Musculoskeletal: Reports no additional musculoskeletal complaints, Denies numbness and Denies tingling Comments: right foot pain Neurologic: Denies dizziness, Denies loss of vision, Denies numbness and Denies tingling Psychiatric: Psychiatric: Reports no additional psychiatric complaints Endocrine: Endocrine: Reports no additional endocrine complaints Hematologic/Lymphatic: Hematologic/Lymphatic: Reports no additional hematologic/lymphatic complaints Allergic/Immunologic: Allergic/Immunologic: Reports no additional allergic/immunologic complaints [facility] Past Medical History Attestation statement: The following information was validated with the patient. Source: old records reviewed and nursing notes reviewed Medical History Asthma Social History Social History Alcohol intake: current Alcohol intake frequency: holidays/special occasions only Alcohol type: beer and wine Advance Directives: No Advance Directives Information Provided: Yes Physical Exam ED Vital Signs: Vital Signs - 24 hr 09/10/24 09:47 09/10/24 11:02 Temperature 97.9 F 97.9 F Pulse Rate 74 80 Respiratory Rate 16 16 Blood Pressure 162/98 H 158/65 H Pulse Oximetry 97 97 BMI result Body Mass Index 33.6 Const General: cooperative, no acute distress, alert and awake Nutritional Appearance: well nourished Orientation/consciousness: patient oriented x3 HENMT Head: Yes normal to inspection and Yes atraumatic Ears: hearing grossly normal bilaterally and external ears normal General nose exam: Normal external nose present, no nasal discharge noted and no epistaxis Face and sinus: Yes normal facial exam, No abrasion and No laceration Mouth: Normal oral and palatal mucosa present, no drooling and no muffled voice Eyes General: appearance normal, both eyes and all related structures Periorbital: periorbital findings normal Eyelids: Yes eyelids normal Conjunctivae: conjunctivae normal Pupils: Equal, round and reactive pupils present EOM: EOMs intact bilaterally Neck Neck: Yes normal visual inspection, Yes full ROM and Yes no lymphadenopathy Resp Effort & Inspection: normal respiratory effort and able to speak in complete sentences Neuro General: patient oriented x3, moves all extremities and CN's II-XI intact bilaterally Cranial nerves: Yes Equal, round and reactive pupils present Cognition (Neuro): normal cognition Extrem Other: minimal swelling present to the dorsal aspect of the right foot no warmth of the right foot pulses intact + present + strong to the right lower extremity General: Yes full ROM and Yes capillary refill normal Psych Appearance: grossly normal Mental Status: mental status grossly normal Affect: normal affect Attitude: cooperative Thought process: Normal thought process present Thought content: Normal thought content present Insight: Good insight present (Psych) Medications Administered Discontinued Medications Generic Name Dose Route Start Last Admin Trade Name Freq PRN Reason Stop Dose Admin Ketorolac Tromethamine 15 mg 09/10/24 10:46 09/10/24 10:51 Ketorolac Tromethamine 15 Mg/Ml Vial IM 09/10/24 10:47 15 mg ONCE ONE Administration Medical Decision Making Medical Decision Making MDM Narrative: Patient is a 49 year old assigned male at with a history of right ankle pain / suspected gout presenting to the emergency department today with right dorsal foot pain. Patient's physical exam was as noted in the physical exam portion of this note. Patient's right foot x-ray showed no acute kelsey process. I explained my physical exam findings as well as all test results to the patient. I answered all questions asked by the patient. Patient's clinical presentation is most consistent with arthralagia vs. gout vs. msk pain. Patient's clinical presentation is not consistent with ischemia / ischemic limb or cellulitis. I stressed the importance of the patient taking his medication as directed (either prescribed or as the over the counter packaging recommends). I stressed the importance of the patient following up with his primary care provider and the orthopedic team. I stressed the importance of the patient returning to the emergency department immediately if his symptoms were to worsen or if he were to develop any dizziness, shortness of breath, difficulty breathing, chest pain, blurry vision, loss of vision, nausea, vomiting, abdominal pain, fever, chills, back pain, or any other complaints. Patient verbalized agreement and understanding with this treatment plan and discharge. Differential Diagnosis Differential Diagnoses: The differential diagnosis associated with the presentation includes Foot pain Arthralgias MSK pain Admission/Observation Consideration of admission/observation: Escalation of care including admission/observation considered Patient would have been admitted to the hospital had his work up had any findings where hospital admission was appropriate and his clinical presentation warranted hospital admission. Independent Interpretation I performed an independent interpretation of an: Plain X-Ray Interpretation: My interpretation is in agreement with the radiologist's impression of this imaging study. EXAMINATION: XR FOOT, RIGHT CLINICAL INFORMATION: pain, injury COMPARISON: None available. TECHNIQUE: AP, lateral, and oblique views of the right foot. FINDINGS: No fracture, dislocation, or suspicious bone lesion. Normal bone mineralization. Normal alignment. Joint spaces are preserved. No significant arthropathy. There is mild dorsal soft tissue swelling of the midfoot and forefoot. XR/XR foot RT min 3V IMPRESSION: 1. Dorsal soft tissue swelling. No acute bony abnormalities. Electronically signed by: Michael Cadet MD 09/10/2024 10:31 AM EDT Dictated By: Michael Cadet MD Signed By: Electronically signed by Michael Cadet MD 09/10/24 1031 Radiology Impression Discussion of test interpretation with radiology: I have reviewed the radiologist's reading. Discharge Plan Discharge Clinical Impression: Acute foot pain Patient Disposition: Home, Self-Care Instructions: Arthralgia (ED) Additional Instructions: Your x-ray showed no acute process of the bones. Follow up with your primary care provider and an orthopedic provider. Return to the emergency department immediately if your symptoms worsen or if you develop any numbness, tingling, dizziness, shortness of breath, difficulty breathing, chest pain, blurry vision, loss of vision, nausea, vomiting, abdominal pain, fever, chills, back pain, or any other complaints. Please see the information below about our Patient Portal. If you are not yet enrolled in the [facility] Patient Portal, you will receive an enrollment email invitation following your visit to any [facility] setting. You may also self-enroll in the Patient Portal by visiting our website: [email or web address] The following information is required to access the Patient Portal: - Your [facility] Medical Record Number - Your personal home email address (must match what is in your electronic medical record, Registration staff can assist with this) - Name - Date of Capabilities of the Patient Portal: - Message some providers - View upcoming appointments - Access your health summary, medical history, and visit history - View current conditions and allergies - View procedure and lab results - View your medications, including guidelines, side effects, and precautions - Complete pre-appointment questionnaires requested by your provider - Ready summary reports of your office visits and procedures To access the Patient Portal Mobile [employer], follow these directions: - Search [employer] in the [employer] Store or [employer] Store - Download the [employer] - Search for [facility] - Enter your login/password Prescriptions: New prednisone 20 mg tablet 20 mg PO DAILY 7 Days Qty: 7 0RF No Action azithromycin 250 mg tablet 250 mg PO DAILY 4 Days Qty: 4 0RF prednisone 50 mg tablet 50 mg PO DAILY Qty: 4 0RF albuterol sulfate 90 mcg/actuation HFA aerosol inhaler 2 puff inhalation Q4-6H PRN (Reason: shortness of breath or wheezing) Qty: 18 0RF prednisone 20 mg tablet 40 mg PO DAILY Qty: 10 0RF benzonatate 200 mg capsule 200 mg PO TID PRN (Reason: cough) Qty: 20 0RF sulfacetamide sodium 10 % drops 1 drp ophthalmic (eye) Q4H 7 Days Qty: 15 0RF timolol 0.25 % drops 1 drp ophthalmic (eye) DAILY Qty: 5 0RF amoxicillin-pot clavulanate 875-125 mg tablet 1 tab PO BID Qty: 14 0RF prednisone 20 mg tablet 40 mg PO DAILY 5 Days Qty: 10 0RF cephalexin 500 mg capsule 500 mg PO QID 7 Days Qty: 28 0RF Referrals: [facility] Family Medicine [Provider Group] (Call to establish and follow up with a primary care provider. If you already have a primary care provider, please follow up with them.) [facility] Primary Care, Paula [Provider Group] (Call to establish and follow up with a primary care provider. If you already have a primary care provider, please follow up with them.) [facility] Primary Care, Joce [Provider Group] (Call to establish and follow up with a primary care provider. If you already have a primary care provider, please follow up with them.) [facility] Primary Care, HAJA [Provider Group] (Call to establish and follow up with a primary care provider. If you already have a primary care provider, please follow up with them.) [facility] Primary CarePollo [Provider Group] (Call to establish and follow up with a primary care provider. If you already have a primary care provider, please follow up with them.) [facility] Orth[facility] Surgeons [Provider Group] (Call to establish and follow up with an senior computer specialist. ) Interventions: ED Discharge Assessment Last Done: 09/10/24 11:02 Discharge Date/Time: 09/10/24 11:03 Print Language: Yakut
[2024-09-10] MEDS: Ketorolac Tromethamine 15 MG/ML VIAL IM (10:51)
[2024-09-10 11:02] VITALS: BP 158/65; PULSE 80; RESP 16; TEMP 36.6; O2SAT 97
== END 2024-09-10 11:03 | disposition home or self-care (01) ==
PROVIDERS: Emergency Provider Emergency Medicine
DX: M79.671 Pain in right foot (principal); Z79.899 Other long term (current) drug therapy
CPT/HCPCS: 73630; 96372; 99283; 99284; J1885

== ENCOUNTER → 2024-09-10 10:14 | Outpatient (BNV) | payer OTHER, SELFPAY | PROVIDERS: Emergency Provider Emergency Medicine; Visit Provider Radiology Diagnostic Radiology | DX: M79.671 Pain in right foot (principal) | CPT/HCPCS: 73630 ==

== ENCOUNTER 2024-10-01 09:58 | Outpatient (AMB) | payer OTHER, SELFPAY ==
[2024-10-01 10:08] VITALS: BP 154/96; PULSE 80; RESP 18; TEMP 37.1; O2SAT 95; BMI 32.7
--- NOTE | 2024-10-01 10:08 | A.OFFPC_ITS ---
Vital Signs 10/01/24 10:08 Height 5 ft 10 in Weight 227 lb 12.8 oz BMI 32.7 BP 154/96 H Blood Pressure Location Lt brachial Position Sitting Respiration 18 Pulse 80 Pulse Source Pulse Oximeter Temp 98.7 F Temp Source Oral Pulse Oximetry (%) 95 Oxygen Delivery Method Room Air Intake Visit Reasons: establish care Intake Note: Patient is a new patient here to re-establish care. Previous PCP was Dr. Rendon; Pt reports he had not established care elsewhere, in the interim, due to insurance issues. 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: No Accompanied by: Self / Same As Patient Allergies No Known Allergies Allergy (Verified 10/01/24 10:22) Medication List - Last Reconciled 10/01/24 by FAWN Hancock albuterol sulfate 90 mcg/actuation 2 puffs inhalation Q4-6H PRN Tobacco use date assessed: 10/01/24 Dental Screening Dental Screen Date: 10/01/24 Did you have a dental visit in the last 12 months?: Yes Did you have a dental problem in the last 6 months where you did not have access to dental care?: No Was dental information given to patient?: Patient has dentist HPI establish care HPI Details The patient is 49 year old that is presenting to reestablish care due to labs in his insurance. The patient was seeing Dr. Rendon, who retired recently Last visit:3 years roughly Last PE: same Specialist: no OBGYN:n/a Past medical history:Asthma, allergies from the pollen,-advil allergy sinus-that is the only medication that helps with his allergy/sinus Medications: Family HX: thinks his father has high blood pressure but he is not sure. Problem: Presenting uncontrolled high blood pressure. He has not seen a healthcare provider in three years following previous care under Dr. Rendon. Hypertension has been noted with severe readings since a hospital visit, with a morning high attributed partly to significant coffee intake. The patient reports a family his tory of hypertension. He experiences frequent headaches, two to three times per day for the past two to three months, without visual disturbances. Asthma and allergic rhinitis are reported, inadequately managed with inhalers and his son's nebulizer. The patient reports nocturia, waking three to four times a night, and possible snoring, suggesting poor quality sleep. Blood pressure is elevated in office. Reports that it has been told that it is elevated before, but he is not sure what is causing this because, he tries to eat healthy Coffee: 3-4 cups of coffee a day in the morning before 10am Reports that he is planning on starting back up exercising Reports getting up 3-4 times a night to urinate, the patient is also drinking fluids late a night, and also drinks more water waking up to use the bathroom Insomnia: reports feeling tired even when he sleeps for a extended period, reports that his girlfriend said that he snores. Headaches 2-3 times a day, reports started 2-3 months ago, denies vision changes, but when he touch his eyes it hurts, resolves with Tylenol 1000mg. denies nausea or vomiting [facility] Medical History (Updated 10/05/24 @ 05:32 by FAWN Hancock) Allergic rhinitis Asthma Surgical History No pertinent past surgical history Family History (Updated 10/01/24 @ 11:15 by FAWN Hancock) Mother Diabetes Father High blood pressure Social History Household Members: Family Household Members Other:: Significant other and children Housing: House Alcohol intake: current Alcohol intake frequency: holidays/special occasions only Patient Tobacco Use Status: Former Tobacco user Years Smoked: 3; Quit 1994 e-Cigarette/Vaping Use: Never Used service: No Current occupational status: employed 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 1. Little interest or pleasure in doing things: not at all 2. Feeling down, depressed, or hopeless: not at all 3. Trouble falling or staying asleep, or sleeping too much: not at all 4. Feeling tired or having little energy: not at all 5. Poor appetite or overeating: not at all 6. Feeling bad about yourself - or that you are a failure or have let yourself or your family down: not at all 7. Trouble concentrating on things, such as reading the newspaper or watching television: not at all 8. Moving or speaking so slowly that other people could have noticed. Or the opposite - being so fidgety or restless that you have been moving around a lot more than usual: not at all 9. Thoughts that you would be better off or of hurting yourself in some way: not at all Total score: 0 Depression Screening Interpretation: Negative Depression Screening Done: Yes 15093 - PHQ-9 Billing: Yes Source: Developed by Drs. Dov Levin, Irene Cedeno, Sumeet Teague and colleagues, with an educational davina from [employer]. Thrive Questionnaire Date Thrive assessed: 10/01/24 I am a: Patient What is your living situation today?: I have a steady place to live Within the past 12 months, did the food you bought not last and you didn't have the money to get more?: I choose not to answer this question Within the past 12 months, did you worry whether your food would run out before you got money to buy more?: I choose not to answer this question Do you have trouble paying for medicines?: No Do you have trouble getting transportation to medical appointments?: No Do you have trouble paying your heating and electricity bill?: No Do you have trouble taking care of your child, family member or friend?: No Do you have trouble with day-to-day activities such as bathing, preparing meals, shopping, managing finances, etc.?: No Are you currently unemployed and looking for a job?: Yes Are you interested in more education?: No Please select the resources that you would like help with: None Currently or been in a relationship where the following occur: I choose not to answer THRIVE Score: 0 AUDIT C Alcohol Use Questionnaire (AUDIT-C) 1. How often do you have a drink containing alcohol?: Monthly or less 2. How many drinks containing alcohol do you have on a typical day when you are drinking?: 3 or 4 3. How often do you have six or more drinks on one occasion?: Never Total Score: 2 Score Reviewed/Action Taken: No SASHA-7 AMB Questionnaire SASHA-7 Date SASHA - 7 assessed: 10/01/24 Feeling nervous, anxious, or on edge: 0 = Not at all Not being able to stop or control worryin = Not at all Worrying too much about different things: 0 = Not at all Trouble relaxin = Not at all Being so restless that it is hard to sit still: 0 = Not at all Becoming easily annoyed or irritable: 0 = Not at all Feeling afraid as if something awful might happen: 0 = Not at all Total SASHA-7 score (0-4 normal; 5-9 mild; 10-14 moderate; 15-21 severe): 0 Source: Developed by Drs. Dov Levin, Irene Cedeno, Sumeet Teague and colleagues, with an educational davina from [employer]. SASHA-7 Assessment Billing SASHA-7 Assessment Tool: SASHA-7 Assessment 54901 Review of Systems Const Reports headache(s) (2-3) Eyes Denies loss of vision ENT Denies vertigo, Denies dizziness, Reports headache(s) (2-3), Reports nasal congestion and Denies sore throat Card Denies chest pain, Denies leg edema and Denies lightheadedness Resp Denies cough, Denies hemoptysis and Denies wheezing GI Denies abdominal pain, Denies melena, Denies constipation, Denies diarrhea and Denies vomiting Denies dysuria, Denies urinary frequency and Denies urinary urgency Musc Denies arthralgias, Denies joint swelling, Denies numbness and Denies tingling Neuro Denies Abnormal speech present, Denies behavioral changes, Denies vertigo, Denies dizziness, Reports headache(s) (2-3), Denies loss of vision, Denies maddi ry loss, Denies numbness and Denies tingling Psych Denies anxiety, Denies behavioral changes, Denies depression, Denies memory loss and Denies panic attacks Chai/Lymph Denies easy bleeding and Denies easy bruising Aller/Immun Denies wheezing Physical exam (Primary Care) Vital Signs: Last Vital Signs Temp 98.7 F 10/01/24 10:08 Pulse 80 10/01/24 10:08 Resp 18 10/01/24 10:08 BP 154/96 H 10/01/24 10:08 Pulse Ox 95 10/01/24 10:08 Oxygen Delivery Method Room Air 10/01/24 10:08 BMI result Body Mass Index 32.7 Tobacco/Smoking Status: Tobacco use Status Tobacco use date assessed 10/01/24 10/01/24 10:20 Patient Tobacco Use Status Former Tobacco user 10/01/24 10:20 e-Cigarette/Vaping Use Never Used 10/01/24 10:20 PHQ-9: PHQ-9 Score PHQ-9: Total score 0 10/01/24 10:44 Depression Screening Interpretation: Negative Thrive Assessment: Date of Thrive Assessment Date Thrive assessed 10/01/24 10/01/24 10:20 Currently or been in a relationship where the following occur: I choose not to answer Const General: healthy appearing, no acute distress, alert and awake Nutritional Appearance: well nourished Orientation/consciousness: oriented to person, oriented to place and oriented to time HENMT Ears: TM's normal bilaterally General nose exam: Normal nasal mucous membranes and turbinates present Eyes Conjunctivae: conjunctivae normal Sclerae: sclerae normal Pupils: Equal, round and reactive pupils present Neck Neck: Yes no lymphadenopathy Thyroid: Thyroid normal Carotids: no bruits Resp Effort & Inspection: normal respiratory effort and not tachypneic Auscultation: no crackles, no rales, no rhonchi and no wheezes Cardio Rate: regular rate Rhythm: regular rhythm Heart sounds: no murmurs and normal S1 and S2 GI Palpation (GI): Soft to palpation, nontender, no hepatomegaly and no splenomeg nancy Auscultation: normal bowel sounds Skin General skin exam: no rashes or lesions noted and dry skin Neuro General: oriented to person, oriented to place and oriented to time Cranial nerves: Yes Equal, round and reactive pupils present Speech: No Abnormal speech present Gait exam (Neuro): Normal gait present Motor exam (neuro): no tremor noted Extrem Right upper extremity: full ROM Left upper extremity: full ROM Right lower extremity: full ROM; no edema Left lower extremity: full ROM; no edema Psych Mental Status: mental status grossly normal Speech and movement: Normal speech and movement present Affect: normal affect Attitude: cooperative Thought process: Normal thought process present Coding Level of Care Code New Pt Level 4 (15119) Diagnoses Seasonal allergic rhinitis due to pollen J30.1 Allergic rhinitis seasonality: seasonal Allergic rhinitis trigger: pollen Hypertension, unspecified type I10 Hypertension type: unspecified Snoring R06.83 Tiredness R53.83 Moderate persistent asthma without complication J45.40 Asthma complication type: uncomplicated Asthma persistence: persistent Asthma severity: moderate Generalized headaches R51.9 Additional Codes PHQ-9 - 27720 - PHQ-9 Billing: Yes ([id number]) SASHA-7 Assessment Billing - SASHA-7 Assessment Tool: SASHA-7 Assessment 55403 ([id number]) Time Spent (min) 41 Assessment & Plan Assessment & Plan (1) Allergic rhinitis: Code(s): J30.9 - Allergic rhinitis, unspecified Category: Medical Qualifiers: Allergic rhinitis seasonality: seasonal Allergic rhinitis trigger: pollen Qualified Code(s): J30.1 - Allergic rhinitis due to pollen (2) High blood pressure: Code(s): I10 - Essential (primary) hypertension Category: Medical Qualifiers: Hypertension type: unspecified Qualified Code(s): I10 - Essential (primary) hypertension Plan: Longstanding elevated blood pressure that has not been treated. Patient reports that he drinks 2-3 for cups of coffee in the morning before 10:00. He also reports feeling tired in the morning after sleeping, and secondary knowledge of snoring. We will start the patient on amlodipine 5 mg and have him come back in 4 weeks for a nurse visit to get his blood pressure check. We will also send the patient for a sleep study to further evaluate. Reinforced low-salt diet and adequate fluid hydration. General labs were ordered to further evaluate. (3) Snoring: Code(s): R06.83 - Snoring Category: Medical Plan: Sleep study ordered (4) Tiredness: Code(s): R53.83 - Other fatigue Category: Medical Plan: Labs ordered along with sleep study (5) Asthma: Code(s): J45.909 - Unspecified asthma, uncomplicated Category: Medical Qualifiers: Asthma complication type: uncomplicated Asthma persistence: persistent Asthma severity: moderate Qualified Code(s): J45.40 - Moderate persistent asth ma, uncomplicated Plan: Denies shortness of breath, but reports using his son's nebulizer treatments. The patient was on a LABA and a ALVERTO before, will reorder these inhalers. (6) Generalized headaches: Code(s): R51.9 - Headache, unspecified Category: Medical Plan: Encouraged fluids and decreasing coffee consumption. Blood pressure management, started amlodipine 5 mg, monitor blood pressure at least 2 times a day. Plan The patient to return in 7 weeks for physical, complete labs before appt Orders: Orders RT home sleep study 10/01/24 R06.83 - Snoring, R53.83 - Other fatigue Complete Blood Count Auto Diff 10/01/24 I10 - Essential (primary) hypertension, R06.83 - Snoring, R53.83 - Other fatigue, Z00.00 - Encounter for general adult medical examination without abnormal findings Comprehensive [place]. Panel Fast 10/01/24 I10 - Essential (primary) hypertension, R06.83 - Snoring, R53.83 - Other fatigue, Z00.00 - Encounter for general adult medical examination without abnormal findings TSH reflex Free T4 10/01/24 I10 - Essential (primary) hypertension, R06.83 - Snoring, R53.83 - Other fatigue, Z00.00 - Encounter for general adult medical examination without abnormal findings UA CC w/rflx Micro + Cult 10/01/24 I10 - Essential (primary) hypertension, R06.83 - Snoring, R53.83 - Other fatigue, Z00.00 - Encounter for general adult medical examination without abnormal findings Vitamin D 25-OH Total 10/01/24 I10 - Essential (primary) hypertension, R06.83 - Snoring, R53.83 - Other fatigue, Z00.00 - Encounter for general adult medical examination without abnormal findings Lipid Panel 10/01/24 I10 - Essential (primary) hypertension, R06.83 - Snoring, R53.83 - Other fatigue, Z00.00 - Encounter for general adult medical examination without abnormal findings Medications: New amlodipine 5 mg PO DAILY 30 tabs 2RF fluticasone propionate 220 mcg/actuation 1 inh inhalation BID 12 grams 2RF Refilled albuterol sulfate 90 mcg/actuation 2 puffs inhalation Q4-6H PRN 18 grams 2RF shortness of breath or wheezing Discontinued prednisone Discontinued Reason: Patient no longer taking 50 mg PO DAILY 4 tabs 0RF azithromycin Discontinued Reason: Patient no longer taking 250 mg PO DAILY 4 days 4 tabs 0RF benzonatate Discontinued Reason: Patient no longer taking 200 mg PO TID PRN 20 caps 0RF cough prednisone Discontinued Reason: Patient no longer taking 40 mg (2 x 20 mg) PO DAILY 10 tabs 0RF timolol 0.25% Discontinued Reason: Patient no longer taking 1 drp ophthalmic (eye) DAILY 5 mL 0RF cephalexin Discontinued Reason: Patient no longer taking 500 mg PO QID 7 days 28 caps 0RF prednisone Discontinued Reason: Patient no longer taking 20 mg PO DAILY 7 days 7 tabs 0RF amoxicillin-pot clavulanate 875-125 mg Discontinued Reason: Patient no longer taking 1 tab PO BID 14 tabs 0RF prednisone Discontinued Reason: Patient no longer taking 40 mg (2 x 20 mg) PO DAILY 5 days 10 tabs 0RF
== END 2024-10-01 11:01 | disposition home or self-care (01) ==
LOC: HO.HMCH 09:59
DX: J30.1 Allergic rhinitis due to pollen (principal); I10 Essential (primary) hypertension; R06.83 Snoring; R53.83 Other fatigue; J45.40 Moderate persistent asthma, uncomplicated; R51.9 Headache, unspecified

== ENCOUNTER → 2024-10-01 09:58 | Outpatient (BNVA) | payer OTHER, SELFPAY | DX: I10 Essential (primary) hypertension (principal); R51.9 Headache, unspecified; J45.909 Unspecified asthma, uncomplicated; R35.1 Nocturia; G47.00 Insomnia, unspecified; R06.83 Snoring; R53.83 Other fatigue; J45.40 Moderate persistent asthma, uncomplicated | CPT/HCPCS: 96127; 99202 ==

== ENCOUNTER 2024-10-13 07:24 | Outpatient (REF) | payer OTHER, SELFPAY ==
[2024-10-13 07:34] LABS: MANUAL DIFF FLAG NO
[2024-10-13 07:55] LABS: Basophils Absolute Auto 0.1 X10*3/uL (0.0-0.2); Basophils Percent Auto 0.9 % (0-2); Eosinophils Absolute Auto 0.2 X10*3/uL (0.0-0.4); Eosinophils Percent Auto 3.1 % (0-4); Hematocrit 43.3 % (42.0-52.0); Hemoglobin 15.2 g/dl (14.0-18.0); Imm Gran Abs Auto 0.02 X10*3/uL (0.00-0.03); Imm Gran Pct Auto 0.3 % (0.0-0.4); Lymphocytes Absolute Auto 2.9 X10*3/uL (1.2-4.9); Lymphocytes Percent Auto 38.2 % (20-40); Mean Corpuscular HGB Conc 35.1 g/dl (31.0-36.0); Mean Corpuscular Volume 88.2 fL (80.0-98.0); Mean Platelet Volume 8.5 fL (9.4-12.4); Monocytes Percent Auto 12.7 % (2-11); Neutrophils Absolute Auto 3.4 x10*3/uL (2.0-8.3); Neutrophils Percent Auto 44.8 % (45-73); Platelet Count 438 X10*3/uL (160-400); Red Blood Count 4.91 X10*6/uL (4.60-5.80); White Blood Count 7.5 X10*3/uL (4.8-10.8)
[2024-10-13 08:20] LABS: Alanine Aminotransferase 34 U/L (0-40); Albumin Level 4.8 g/dL (3.5-5.0); Alkaline Phosphatase 78 U/L (39-117); Anion Gap 12 (12-20); Aspartate Amino Transferase 24 U/L (5-37); Bilirubin Total 0.5 mg/dL (0.0-1.0); Blood Urea Nitrogen 13 mg/dL (9-16); Calcium 9.9 mg/dL (8.4-10.2); Carbon Dioxide 29 mmol/L (22-29); Chloride 106 mmol/L (96-108); Cholesterol 143 mg/dL (<200); Estimated Glomerular Filt Rate > 60; Glucose Fasting 94 mg/dL (60-99); HDL Cholesterol 34 mg/dL (>40); LDL Cholesterol Calculated 88 mg/dL (<100); Potassium 4.1 mmol/L (3.3-5.1); Sodium 143 mmol/L (135-145); Total Protein 7.9 g/dL (6.5-8.0); Triglycerides 105 mg/dL (<150)
[2024-10-13 08:36] LABS: TSH reflex Free T4 1.42 uIU/mL (0.32-4.0); Vitamin D 25-OH Total 26.3 ng/mL (>30)
== END 2024-10-13 07:25 | disposition home or self-care (01) ==
LOC: HO.LAB 07:24
DX: Z00.00 Encounter for general adult medical examination without abnormal findings (principal); R06.83 Snoring; R53.83 Other fatigue; I10 Essential (primary) hypertension
CPT/HCPCS: 36415; 80053; 80061; 82306; 84443; 85025

== ENCOUNTER 2024-10-14 08:08 | Outpatient (REF) | payer OTHER, SELFPAY ==
[2024-10-14 08:25] LABS: Appearance Urine Clear; Color Urine Yellow; Glucose Urine UA Negative (Negative); Leukocyte Esterase Urine Negative (Negative); Nitrite Urine Negative (Negative); PH 6.5 (5.0-9.0); Specific Gravity - Urine 1.025 (1.005-1.025); Urine Blood Negative (Negative); Urine Ketones Negative (Negative); Urine Protein Negative (Neg-Trace)
== END 2024-10-14 08:09 | disposition home or self-care (01) ==
LOC: HO.LNP 08:08
DX: Z00.00 Encounter for general adult medical examination without abnormal findings (principal); R06.83 Snoring; R53.83 Other fatigue; I10 Essential (primary) hypertension
CPT/HCPCS: 81003

== ENCOUNTER 2024-11-09 06:56 | Emergency (ER) | payer OTHER, SELFPAY ==
[2024-11-09 06:57] VITALS: BP 149/103; PULSE 80; RESP 20; TEMP 37; O2SAT 97; BMI 32.8
--- NOTE | 2024-11-09 08:35 | ED.DENTAL ---
HPI - Dental/Oral General Chief complaint: Dental/Oral Stated complaint: tooth infection Time Seen by Provider: 11/09/24 07:58 Source: patient and RN notes reviewed Mode of arrival: ambulatory Limitations: no limitations History of Present Illness ED Provider: Shelby Bowen PA-C HPI Narrative: This is a 49-year-old male, with no known medical problems, who presents emergency department with concerns of left-sided dental pain and left-sided facial swelling. Patient states that he has had lower dental pain for the last month. Patient states that the pain has been increasing over the last several days. He states that he used origin yesterday and awoke this morning with left-sided facial swelling and worsening pain. He has been taking ibuprofen for his pain which has provided him with some relief. He denies any fevers or chills. Denies any chest pain or shortness for breath. Denies difficulty breathing or swallowing. No other complaints or concerns at this time. MD Complaint: tooth pain Location: Tooth # Teeth map:  1. Onset (ago): day(s) Duration: constant Relieving factors: NSAIDs Exacerbating factors: nothing Context: history of dental caries Treatment prior to arrival: oral analgesic Related Data Previous Rx's ?Medication ?Instructions ?Recorded albuterol sulfate 90 mcg/actuation 2 puff inhalation Q4-6H PRN 10/01/24 aerosol inhaler shortness of breath or wheezing #18 grams amlodipine 5 mg tablet 5 mg PO DAILY #30 tabs 10/01/24 mometasone 200 mcg/actuation HFA 2 puff inhalation BID #13 grams 10/07/24 aerosol inhaler (Asmanex HFA) acetaminophen 500 mg tablet 500 - 1,000 mg (1 - 2 x 500 mg) PO 11/09/24 (Tylenol Extra Strength) Q8H PRN pain #30 tabs amoxicillin 875 mg-potassium 1 tab PO BID 10 days #20 tabs 11/09/24 clavulanate 125 mg tablet ibuprofen 600 mg tablet 600 mg PO Q6H PRN pain #30 tabs 11/09/24 Allergies Allergy/AdvReac Type Severity Reaction Status Date / Time No Known Allergies Allergy Verified 11/09/24 07:00 Review of Systems Review of Systems: Yes all other systems are reviewed and are negative Constitutional: Constitutional: Reports as per [facility] Past Medical History Medical History (Updated 11/09/24 @ 08:36 by ISAIAH Lyles) Allergic rhinitis Asthma Surgical History No pertinent past surgical history Family History Family History (Updated 10/01/24 @ 11:15 by FAWN Hancock) Mother Diabetes Father High blood pressure Social History Social History Household Members: Family Household Members Other:: Significant other and children Housing: House Alcohol intake: current Alcohol intake frequency: holidays/special occasions only Patient Tobacco Use Status: Former Tobacco user Years Smoked: 3; Quit 1994 e-Cigarette/Vaping Use: Never Used Advance Directives: No Advance Directives Information Provided: Yes Do you have a plan to hurt others: No Plan service: No Current occupational status: employed 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 Moderate left-sided facial swelling. No trismus, drooling, or dysphonia. Head: Yes normal to inspection, Yes normocephalic and Yes atraumatic Ears: hearing grossly normal bilaterally General nose exam: Normal external nose present Face and sinus: Yes normal facial exam Mouth: Normal oral and palatal mucosa present, oropharynx normal and moist mucous membranes Throat: Yes posterior oropharynx normal Eyes: General: appearance normal, both eyes and all related structures Eyelids: Yes eyelids normal Conjunctivae: conjunctivae normal Sclerae: sclerae normal Pupils: Equal, round and reactive pupils present EOM: EOMs intact bilaterally Neck: Neck: Yes normal visual inspection, Yes full ROM and Yes no lymphadenopathy Lymphatic: no lymphadenopathy noted Chest: Chest palpation & inspection: normal inspection of the chest Resp: Effort & Inspection: normal respiratory effort and able to speak in complete sentences Cardio: Rate: regular rate Rhythm: regular rhythm Heart sounds: S1 normal heart sound present and S2 normal heart sound present GI: Inspection: Yes normal to inspection Skin: General skin exam: no rashes or lesions noted Trauma: no lacerations or abrasions Wounds: no wounds Neuro: General: patient oriented x3 and moves all extremities Cranial nerves: Yes Equal, round and reactive pupils present Extrem: General: Yes normal to inspection Right upper extremity: normal to inspection Left upper extremity: normal to inspection Right lower extremity: normal to inspection Left lower extremity: normal to inspection Medical Decision Making Medical Decision Making MDM Narrative: This is a 49-year-old male who presents emergency department with complaints of left lower dental pain for the last month. On arrival blood pressure mildly elevated 1489/103, all other vital signs within normal limits. Tooth number 22 in poor dental repair, no surrounding gingival edema, or fluctuance. No evidence of dental abscess. He does have moderate swelling to the left side of his face. No fevers or chills. No difficulty swallowing. Will treat with antibiotics, ibuprofen and Tylenol. Given strict return precautions. Educated the importance of following up with a dentist. He understands agrees with plan. Patient stable for discharge Differential Diagnosis Differential Diagnoses: The differential diagnosis associated with the presentation includes Dental caries, dental abscess, dental fracture, Radiology Impression Discussion of test interpretation with radiology: I have reviewed the radiologist's reading. Discharge Plan Discharge Clinical Impression: Pain, dental Patient Disposition: Home, Self-Care Instructions: Toothache (ED) Additional Instructions: You were seen in the emergency department due to dental pain. Please take prescribed antibiotic as directed, finish the entire course even if your symptoms improve. We gave you your 1st dose of the antibiotic as well as a dose of Tylenol here in the department. Please alternate between ibuprofen and or Tylenol as needed for pain. Ibuprofen 600 mg every 6 hours, and Tylenol 500 to a 1000 mg every 8 hours. Drink plenty of fluids get plenty of rest. Warm compresses to the left side of your face can be helpful. Call a dentist as soon as possible. If any new or worsening symptoms occur including but not limited to worsening facial swelling, high fevers, inability to swallow, please return for re-evaluation. Prescriptions: New amoxicillin-pot clavulanate 875-125 mg tablet 1 tab PO BID 10 Days Qty: 20 0RF acetaminophen [Tylenol Extra Strength] 500 mg tablet 500 - 1,000 mg PO Q8H PRN (Reason: pain) Qty: 30 0RF ibuprofen 600 mg tablet 600 mg PO Q6H PRN (Reason: pain) Qty: 30 0RF No Action Asmanex HFA 200 mcg/actuation HFA aerosol inhaler 2 puff inhalation BID Qty: 13 2RF amlodipine 5 mg tablet 5 mg PO DAILY Qty: 30 2RF albuterol sulfate 90 mcg/actuation HFA aerosol inhaler 2 puff inhalation Q4-6H PRN (Reason: shortness of breath or wheezing) Qty: 18 2RF Print Language: Divehi
[2024-11-09 08:57] VITALS: BP 175/92; PULSE 86; RESP 18; TEMP 36.7; O2SAT 99
[2024-11-09 09:13] VITALS: BP 175/92; PULSE 86; RESP 18; TEMP 36.7; O2SAT 99
== END 2024-11-09 09:18 | disposition home or self-care (01) ==
PROVIDERS: Emergency Provider Emergency Medicine
DX: K08.89 Other specified disorders of teeth and supporting structures (principal); Z79.899 Other long term (current) drug therapy
CPT/HCPCS: 99283; 99284

== ENCOUNTER 2025-01-09 08:21 | Outpatient (AMB) | payer OTHER, SELFPAY ==
--- NOTE | 2025-01-09 08:28 | MHC.PC.OV ---
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: No Accompanied by: Self / Same As Patient Allergies No Known Allergies Allergy (Verified 01/09/25 08:37) Medication List - Last Reconciled 01/09/25 by FAWN Hancock acetaminophen (Tylenol Extra Strength) 500 - 1,000 mg (1 - 2 x 500 mg) PO Q8H PRN albuterol sulfate 90 mcg/actuation 2 puffs inhalation Q4-6H PRN amlodipine 5 mg PO DAILY amoxicillin-pot clavulanate 875-125 mg 1 tab PO BID 10 days ibuprofen 600 mg PO Q6H PRN mometasone 200 mcg/actuation (Asmanex HFA) 2 puffs inhalation BID Tobacco use date assessed: 01/09/25 Dental Screening Dental Screen Date: 01/09/25 Did you have a dental visit in the last 12 months?: Yes Did you have a dental problem in the last 6 months where you did not have access to dental care?: No Was dental information given to patient?: Patient has dentist HPI Annual PE RE HPI Details Dentist: up to date Eye: up to date Snellen: Right: Left: Corrected vision: no STI screening: Colonoscopy: cologuard Pap Smer: PHQ-9: Flu: usually, has not taken this as yet COVID: x4 Tdap:2017 Diet:regular, has been cutting back salt and high cholesterol foods Exercise: Not yet The patient is a 49-year-old male presenting with a wellness check-up focusing on high blood pressure , left foot recurrent swelling and pain intermittently High blood pressure has been a concern, but recent lifestyle changes, including weight loss, have contributed to improved blood pressure readings. The patient has not been taking prescribed antihypertensive medication due to insurance issues, but current blood pressure levels are satisfactory. The patient reports intermittent swelling and pain in the left foot, which sometimes results in a limp. The swelling is described as a bump on the top of left foot, with pain felt inside the bone rather than on the surface. The symptoms have been present intermittently for about two months, with episodes lasting up to a week. The patient has a history of hyperlipidemia, with recent lab results showing LDL cholesterol at 88 mg/dL and HDL cholesterol at 34 mg/dL. Recommendations were made to increase HDL levels through omega-3 supplements or dietary changes. Vitamin D levels are slightly low, and supplementation was discussed as a potential intervention. A sleep study was recommended due to suspected sleep apnea, but the patient has not yet completed it due to scheduling issues. The patient was advised to follow up with the referral department to ensure the study is completed. Health Maintenance: - Colon cancer screening with Cologuard was discussed as an alternative to colonoscopy. - Sleep study for suspected sleep apnea is pending completion. - Vitamin D supplementation was recommended due to low levels. - [place]-3 supplements were recommended to increase HDL cholesterol levels. [facility] Medical History Allergic rhinitis Asthma Surgical History No pertinent past surgical history Family History Mother Diabetes Father High blood pressure Social History Household Members: Family Household Members Other:: Significant other and children Housing: House Alcohol intake: current Alcohol intake frequency: holidays/special occasions only Patient Tobacco Use Status: Former Tobacco user Years Smoked: 3; Quit 1994 e-Cigarette/Vaping Use: Never Used service: No Current occupational status: employed Current occupation: [employer] Cognitive needs: No Hearing needs: No Vision needs: No Questionnaire PHQ-9 Over the last 2 weeks, how often have you been bothered by any of the following problems? 1. Little interest or pleasure in doing things: not at all 2. Feeling down, depressed, or hopeless: not at all 3. Trouble falling or staying asleep, or sleeping too much: not at all 4. Feeling tired or having little energy: not at all 5. Poor appetite or overeating: not at all 6. Feeling bad about yourself - or that you are a failure or have let yourself or your family down: not at all 7. Trouble concentrating on things, such as reading the newspaper or watching television: not at all 8. Moving or speaking so slowly that other people could have noticed. Or the opposite - being so fidgety or restless that you have been moving around a lot more than usual: not at all 9. Thoughts that you would be better off or of hurting yourself in some way: not at all Total score: 0 Depression Screening Interpretation: Negative Depression Screening Done: Yes 39150 - PHQ-9 Billing: Yes Source: Developed by Drs. Dov Levin, Irene Cedeno, Sumeet Teague and colleagues, with an educational davina from [employer]. Thrive Questionnaire Date Thrive assessed: 01/09/25 I am a: Patient What is your living situation today?: I have a steady place to live Within the past 12 months, did the food you bought not last and you didn't have the money to get more?: I choose not to answer this question Within the past 12 months, did you worry whether your food would run out before you got money to buy more?: I choose not to answer this question Do you have trouble paying for medicines?: No Do you have trouble getting transportation to medical appointments?: No Do you have trouble paying your heating and electricity bill?: No Do you have trouble taking care of your child, family member or friend?: No Do you have trouble with day-to-day activities such as bathing, preparing meals, shopping, managing finances, etc.?: No Are you currently unemployed and looking for a job?: Yes Are you interested in more education?: No Please select the resources that you would like help with: None Currently or been in a relationship where the following occur: I choose not to answer THRIVE Score: 0 AUDIT C Alcohol Use Questionnaire (AUDIT-C) 1. How often do you have a drink containing alcohol?: Monthly or less 2. How many drinks containing alcohol do you have on a typical day when you are drinking?: 3 or 4 3. How often do you have six or more drinks on one occasion?: Never Total Score: 2 Score Reviewed/Action Taken: No SASHA-7 AMB Questionnaire SASHA-7 Date SASHA - 7 assessed: 01/09/25 Feeling nervous, anxious, or on edge: 0 = Not at all Not being able to stop or control worryin = Not at all Worrying too much about different things: 0 = Not at all Trouble relaxin = Not at all Being so restless that it is hard to sit still: 0 = Not at all Becoming easily annoyed or irritable: 0 = Not at all Feeling afraid as if something awful might happen: 0 = Not at all Total SASHA-7 score (0-4 normal; 5-9 mild; 10-14 moderate; 15-21 severe): 0 Source: Developed by Drs. Dov Levin, Irene Cedeno, Sumeet Teague and colleagues, with an educational davina from [employer]. SASHA-7 Assessment Billing SASHA-7 Assessment Tool: SASHA-7 Assessment 29721 Review of Systems Const Denies headache(s) Eyes Denies loss of vision ENT Denies vertigo, Denies dizziness, Denies headache(s) and Denies sore throat Card Denies chest pain, Denies leg edema and Denies lightheadedness Resp Denies cough, Denies hemoptysis and Denies wheezing GI Denies abdominal pain, Denies melena, Denies constipation, Denies diarrhea and Denies vomiting Denies dysuria, Denies urinary frequency and Denies urinary urgency Musc Denies arthralgias, Denies joint swelling, Denies numbness, Denies tingling and Reports other (top of left foot swelling and pain intermittently) Neuro Denies Abnormal speech present, Denies behavioral changes, Denies vertigo, Denies dizziness, Denies headache(s), Denies loss of vision, Denies memory loss, Denies numbness and Denies tingling Psych Denies anxiety, Denies behavioral changes, Denies depression, Denies memory loss and Denies panic attacks Chai/Lymph Denies easy bleeding and Denies easy bruising Aller/Immun Denies wheezing Physical exam (Primary Care) Vital Signs: Last Vital Signs Temp 97.3 F 01/09/25 08:29 Pulse 61 01/09/25 08:29 Resp 18 01/09/25 08:29 BP 110/72 01/09/25 08:29 Pulse Ox 96 01/09/25 08:29 Oxygen Delivery Method Room Air 01/09/25 08:29 BMI result Body Mass Index 32.0 Tobacco/Smoking Status: Tobacco use Status Tobacco use date assessed 01/09/25 01/09/25 08:34 Patient Tobacco Use Status Former Tobacco user 01/09/25 08:34 e-Cigarette/Vaping Use Never Used 01/09/25 08:34 PHQ-9: PHQ-9 Score PHQ-9: Total score 0 01/09/25 08:34 Depression Screening Interpretation: Negative Thrive Assessment: Date of Thrive Assessment Date Thrive assessed 01/09/25 01/09/25 08:34 Currently or been in a relationship where the following occur: I choose not to answer Const General: healthy appearing, no acute distress, alert and awake Nutritional Appearance: well nourished Orientation/consciousness: oriented to person, oriented to place and oriented to time HENMT Ears: TM's normal bilaterally General nose exam: Normal nasal mucous membranes and turbinates present Eyes Conjunctivae: conjunctivae normal Sclerae: sclerae normal Pupils: Equal, round and reactive pupils present Neck Neck: Yes no lymphadenopathy and Yes no JVD Thyroid: Thyroid normal Carotids: no bruits Resp Effort & Inspection: normal respiratory effort and not tachypneic Auscultation: no crackles, no rales, no rhonchi and no wheezes Cardio Rate: regular rate Rhythm: regular rhythm Heart sounds: no murmurs and normal S1 and S2 GI Palpation (GI): Soft to palpation, nontender, no hepatomegaly and no splenomegaly Auscultation: normal bowel sounds Skin General skin exam: no rashes or lesions noted and dry skin Neuro General: oriented to person, oriented to place and oriented to time Cranial nerves: Yes Equal, round and reactive pupils present Speech: No Abnormal speech present Gait exam (Neuro): Normal gait present Motor exam (neuro): no tremor noted Extrem Right upper extremity: full ROM Left upper extremity: full ROM Right lower extremity: full ROM; no edema Left lower extremity: full ROM and foot (trace edema on top, no tenderness); no edema Psych Mental Status: mental status grossly normal Speech and movement: Normal speech and movement present Affect: normal affect Attitude: cooperative Thought process: Normal thought process present Results Reviewed Results Reviewed: Laboratory Tests 10/13/24 10/14/24 07:32 07:35 WBC 7.5 RBC 4.91 Hgb 15.2 Hct 43.3 MCV 88.2 MCH 31.0 MCHC 35.1 RDW 13.0 Plt Count 438 H Sodium 143 Potassium 4.1 Chloride 106 Carbon Dioxide 29 Anion Gap 12 BUN 13 Creatinine 0.90 Estim Creat Clear Calc Not Reportable Estimated GFR > 60 Fasting Glucose 94 Calcium 9.9 Total Bilirubin 0.5 AST 24 ALT 34 Alkaline Phosphatase 78 Total Protein 7.9 Albumin 4.8 Triglycerides 105 Cholesterol 143 LDL Cholesterol, Calc 88 HDL Cholesterol 34 L 25-OH Vitamin D Total 26.3 L TSH 1.42 Urine Color Yellow Urine Appearance Clear Urine pH 6.5 Ur Specific [place] 1.025 Urine Protein Negative Urine Glucose (UA) Negative Urine Ketones Negative Urine Blood Negative Urine Nitrite Negative Ur Leukocyte Esterase Negative Coding Level of Care Code Est Pt Prev Care 40-64y(20151) Diagnoses Annual physical exam Z00.00 Seasonal allergic rhinitis due to pollen J30.1 Allergic rhinitis trigger: pollen Allergic rhinitis seasonality: seasonal Hypertension, unspecified type I10 Hypertension type: unspecified Snoring R06.83 Tiredness R53.83 Moderate persistent asthma without complication J45.40 Asthma severity: moderate Asthma persistence: persistent Asthma complication type: uncomplicated Generalized headaches R51.9 Swelling of left foot M79.89 Pain in left foot M79.672 Vitamin D deficiency E55.9 Low HDL (under 40) E78.6 Additional Codes SASHA-7 Assessment Billing - SASHA-7 Assessment Tool: SASHA-7 Assessment 62021 ([id number]) PHQ-9 - 53952 - PHQ-9 Billing: Yes ([id number]) Time Spent (min) 36 Assessment & Plan Assessment & Plan (1) Annual physical exam: Code(s): Z00.00 - Encounter for general adult medical examination without abnormal findings Category: Medical Plan: The patient is a 49-year-old male presenting for annual physical. Preventative guidelines and recent labs reviewed with the patient. Cologuard ordered. (2) Allergic rhinitis: Code(s): J30.9 - Allergic rhinitis, unspecified Category: Medical Qualifiers: Allergic rhinitis trigger: pollen Allergic rhinitis seasonality: seasonal Qualified Code(s): J30.1 - Allergic rhinitis due to pollen (3) High blood pressure: Code(s): I10 - Essential (primary) hypertension Category: Medical Qualifiers: Hypertension type: unspecified Qualified Code(s): I10 - Essential (primary) hypertension Plan: Patient blood pressure within normal limits in office today Previously the patient was started on amlodipine due to elevated blood pressure though he has not received this medication Reports that he has been making dietary changes Discontinue amlodipine 5 mg daily We will continue to monitor, reinforced low-salt diet and activity as tolerated (4) Snoring: Code(s): R06.83 - Snoring Category: Medical Plan: Sleep study was ordered on previous visit Reports he was called and given an appointment to pick the equipment up but he is not sure when Apparently per chart review the patient no showed Called Central scheduling and they we will give the patient a call to reschedule (5) Tiredness: Code(s): R53.83 - Other fatigue Category: Medical Plan: Same as above (6) Asthma: Code(s): J45.909 - Unspecified asthma, uncomplicated Category: Medical Qualifiers: Asthma severity: moderate Asthma persistence: persistent Asthma complication type: uncomplicated Qualified Code(s): J45.40 - Moderate persistent asthma, uncomplicated Plan: Stable on current treatment Continue has been ex puffs inhalation b.i.d., albuterol sulfate 90 mcg/actuation 2 puffs inhalation q.4-6 hours p.r.n. Reinforced avoiding triggers and irritants (7) Generalized headaches: Code(s): R51.9 - Headache, unspecified Category: Medical Plan: Denies headache today. Continue decreasing coffee consumption and increasing fluids (8) Swelling of left foot: Code(s): M79.89 - Other specified soft tissue disorders Category: Medical Plan: Recurrent left foot swollen and pain, particular on the top of foot. Reports that this is random, denies any injuries. Reports it feels like the pain is coming from the inside of the foot. X-ray of left foot ordered to further evaluate. (9) Pain in left foot: Code(s): M79.672 - Pain in left foot Category: Medical Plan: Same as above (10) Vitamin D deficiency: Code(s): E55.9 - Vitamin D deficiency, unspecified Category: Medical Plan: Cholecalciferol 50 mcg daily ordered (11) Low HDL (under 40): Code(s): E78.6 - Lipoprotein deficiency Category: Medical Plan: Encouraged Glendora 3 supplements Plan Patient to follow up in 4 months for blood pressure monitoring/sleep study evaluation Orders: Orders XR foot LT 2V Today M79.672 - Pain in left foot, M79.89 - Other specified soft tissue disorders Medications: New cholecalciferol (vitamin D3) 50 mcg PO DAILY 90 caps 3RF Discontinued amlodipine Discontinued Reason: Doctor's Order 5 mg PO DAILY 30 tabs 2RF
[2025-01-09 08:29] VITALS: BP 110/72; PULSE 61; RESP 18; TEMP 36.3; O2SAT 96; BMI 32.0
--- OUTSIDE RECORDS SUMMARY | 2025-01-09 08:43 | XMS_ITS | Clinical Summary ---
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 Not on robbie e 08/26/2022 Are you concerned about learning? Not on file 08/26/2022 No 08/26/2022 No 08/26/2022 Digital Access Answer Date Recorded No 09/23/2022 No 09/23/2022 No 09/23/2022 Reliable internet access at home? Not on file 09/23/2022 Device with a working camera? Not on file Sex and Gender Information Value Date Recorded Sex Assigned at Not on file Legal Sex Male 10:26 AM EDT Gender Identity Not on file Sexual Orientation Not on file Plan of Treatment Health Maintenance Due Date Last Done Comments LIPID PANEL 1977 DEPRESSION SCREENING 1989 SMOKING Hx and SMOKELESS TOBACCO SCREENING 1990 HEPATITIS C SCREENING 1995 HIV ONE-TIME SCREENING (18-6 5 YEARS) 1995 COLOGUARD 2022 COLONOSCOPY 2022 COLORECTAL CANCER SCREENING 2022 FIT TEST 2022 FOBT 2022 SIGMOIDOSCOPY 2022 VIRTUAL COLONOSCOPY 2022 INFLUENZA VACCINE (#1) 2024 9, 04/03/2018 COVID-19 VACCINE (4 2024-2 6 season) 2024 04/13/2021, 08/29/2020, 08/08/2020 Adult Td,Tdap Booster 09/20/2026 09/20/2016 HEPATITIS A VACCINES Aged Out No long er eligible based on patient's age to complete this topic HIB VACCINES Aged Out No longer eligi ble based on patient's age to complete this topic MENINGOCOCCAL VACCINES (ACWY) Aged Out No longer eligible based on patient's age to complete this topic MENINGOCOCCAL VACCINES (B) Aged Out N o longer eligible based on patient's age to complete this topic PNEUMOCOCCAL VACCINES (0-49 years) Aged Out No longer eligible b ased on patient's age to complete this topic Medical Devices Not on file Insurance [place] [address] [place] [address] [place] [address] [place] [address] [place] [address] [place] [address] [place] [address] [place] [address] [place] [address] [place] [address] A[employer] A[employer] Care Teams Supervisor Farm Equipment Maintenance Relationship Specialty Start Date End Date Pcp, Unknown PCP - General 08/04/20 Additional Source Comments The information contained in this document represents components of the legal health record. It is not the complete legal health record.[facility]
== END 2025-01-09 09:09 | disposition home or self-care (01) ==
LOC: HO.HMCH 08:22
DX: Z00.00 Encounter for general adult medical examination without abnormal findings (principal); J30.1 Allergic rhinitis due to pollen; I10 Essential (primary) hypertension; R06.83 Snoring; R53.83 Other fatigue; J45.40 Moderate persistent asthma, uncomplicated; R51.9 Headache, unspecified; M79.89 Other specified soft tissue disorders; M79.672 Pain in left foot; E55.9 Vitamin D deficiency, unspecified; E78.6 Lipoprotein deficiency

== ENCOUNTER → 2025-01-09 08:21 | Outpatient (BNVA) | payer OTHER, SELFPAY | DX: Z00.00 Encounter for general adult medical examination without abnormal findings (principal); I10 Essential (primary) hypertension; M79.672 Pain in left foot; E78.5 Hyperlipidemia, unspecified; E55.9 Vitamin D deficiency, unspecified; J30.1 Allergic rhinitis due to pollen; R06.83 Snoring; R53.83 Other fatigue; J45.40 Moderate persistent asthma, uncomplicated; R51.9 Headache, unspecified; M79.89 Other specified soft tissue disorders; E78.6 Lipoprotein deficiency | CPT/HCPCS: 96127; 99396 ==

== ENCOUNTER → 2025-03-17 14:44 | Outpatient (REF) | payer OTHER, SELFPAY ==
--- OUTSIDE RECORDS SUMMARY | 2025-03-18 12:36 | XMS_ITS | Clinical Summary ---
Author Organization [facility] Address [address] [place] [phone] Phone Care Team Providers Care Insurance Verification Representative Name Role Phone Pcp, Unknown Primary Care [...] VIRTUAL COLONOSCOPY 2022 INFLUENZA VACCINE (#1) 2024 , 04/03/2018 COVID-19 VACCINE (4 2024-2 6 season) 2024 04/13/2021, 08/29/2020, 08/08/2020 Adult Td,Tdap Booster 09/20/2026 09/20/2016 HEPATITIS A VACCINES Aged Out No long er eligible based on patient's age to complete this topic HIB VACCINES Aged Out No longer eligi ble based on patient's age to complete this topic IPV VACCINES Aged Out No longer eligi ble [...] Medical Devices Not on file Insurance [place] [address] [place] [address] [place] [address] [place] [address] [place] [address] [place] [address] [place] [address] [place] [address] ACO [employer] A[employer] Care Teams Insurance Verification Representative Relationship Specialty Start Date End Date Pcp, Unknown PCP - General 08/04/20 Additional Source Comments The information contained in this document represents components of the legal health record. It is not the complete legal health record.[facility]
== END ==
LOC: HO.SL 14:44
DX: R53.83 Other fatigue (principal); R06.83 Snoring
CPT/HCPCS: 95806

== ENCOUNTER → 2025-03-17 14:52 | Outpatient (BNV) | payer OTHER, SELFPAY | PROVIDERS: Visit Provider Psychiatry & Neurology Neurology | DX: R06.83 Snoring (principal) | CPT/HCPCS: 95806 ==

== ENCOUNTER 2025-04-29 08:13 | Outpatient (AMB) | payer OTHER, SELFPAY ==
--- OUTSIDE RECORDS SUMMARY | 2025-04-29 08:17 | XMS_ITS | Clinical Summary ---
Author Organization [facility] Address [address] [place] [phone] Phone Care Team Providers Care Creative Arts Therapist Name Role Phone Pcp, Unknown Primary Care [...] Medical Devices Not on file Insurance [place] [address] [place] [address] [place] [place] [address] [place] [place] [address] [place] [address] [place] [address] [place] [address] [place] [address] ACO ACO ACO Care Teams Creative Arts Therapist Relationship Specialty Start Date End Date Pcp, Unknown PCP - General 08/04/20 Additional Source Comments The information contained in this document represents components of the legal health record. It is not the complete legal health record.[facility]
--- NOTE | 2025-04-29 08:22 | MHC.OFFVIS ---
Vital Signs 04/29/25 08:23 Height 5 ft 10 in Weight 233 lb 6 oz BMI 33.5 BP 120/82 Blood Pressure Location Lt brachial Position Sitting Pulse 79 Pulse Source Pulse Oximeter Pulse Oximetry (%) 94 Oxygen Delivery Method Room Air Intake Visit Reasons: INP-TAL Intake Note: Patient presents [employer]ICK[employer] ATTENDANT Snoring/Fatigue. HST in chart(AHI-5.8, CESAR-84%) Accompanied by: Self / Same As Patient Allergies No Known Allergies Allergy (Verified 04/29/25 08:25) HPI Comments Details: 50 year old male with history of sleep difficulties presents for a follow up of his HST. 2024 HST c/w mild tal AHI is 6.6/hr oxygen desaturation for 7% of total sleep time with moderate snoring. He continues to gasp for air, snores loudly per his bed partner. He has multiple arousals at night at 3-4 x for the bathroom. 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 He has morning headaches 1-2x a week, lasting for an hour and resolve with otc tylenol use. He has discomfort in his lower limbs which causes paresthesias, l side is worse than r. He is chronically fatigued and irritable due to fragmented sleep. He has acid reflux managed with lifestyle and diet, he complains of solid food getting stuck in his throat after meals for the last 6months. He has difficulty trying to push bolus of food down by forcefully swallowing, he has to run to the bathroom and dislodge it with his finger by bringing it back up and this is very painful. This process causes him to have anxiety with eating solids and he eats slowly, chews mindfully. Denies parasomnias, abnormal sleep behaviors. 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 Cognitive needs: No Hearing needs: No Vision needs: No Physical Exam Vital Signs: Last Vital Signs Pulse 79 04/29/25 08:23 BP 120/82 04/29/25 08:23 Pulse Ox 94 04/29/25 08:23 Oxygen Delivery Method Room Air 04/29/25 08:23 BMI result Body Mass Index 33.5 Const General: cooperative and no acute distress Nutritional Appearance: overweight Orientation/consciousness: patient oriented x3 HEENT Ears: other General nose exam: Other nasal findings present Face and sinus: Yes face symmetric and Yes other Mouth: other Teeth and gingiva: other (mallampti score is 4) Throat: Yes other Eyes Pupils: Equal, round and reactive pupils present Neck Neck: Yes full ROM and Yes other Thyroid: other Carotids: other Lymphatic: other Resp Effort & Inspection: normal respiratory effort and able to speak in complete sentences Neuro General: patient oriented x3 and moves all extremities Cranial nerves: Yes Equal, round and reactive pupils present, Yes Normal accommodation reflex present, Yes Normal facial strength present, Yes Midline tongue present, Yes Ability to bilaterally rotate head present and Yes Ability to bilaterally elevate shoulders present Gait exam (Neuro): Normal gait present Motor exam (neuro): 5/5 motor strength present throughout and Normal motor muscle tone present throughout Psych Appearance: grossly normal Affect: normal affect Results Reviewed Results Reviewed: 2024 HST c/w mild tal AHI is 6.6/hr oxygen desaturation for 7% of total sleep time with moderate snoring. labs reviewed with pt Vit D is low. Assessment & Plan Assessment & Plan (1) TAL (obstructive sleep apnea): Code(s): G47.33 - Obstructive sleep apnea (adult) (pediatric) Category: Medical (2) Snoring: Code(s): R06.83 - Snoring Category: Medical (3) Excessive daytime sleepiness: Code(s): G47.19 - Other hypersomnia Category: Medical (4) Dysphagia: Code(s): R13.10 - Dysphagia, unspecified Category: Medical Qualifiers: Dysphagia type: unspecified Qualified Code(s): R13.10 - Dysphagia, unspecified (5) Difficulty swallowing solids: Code(s): R13.10 - Dysphagia, unspecified Category: Medical Plan Mild tal will start him on cpap therapy [id number] and f/u for compliance. 2024 HST c/w mild tal AHI is 6.6/hr oxygen desaturation for 7% of total sleep time with moderate snoring. Dysphagia with food getting stuck in his throat, Barium swallow study. labs reviewed with pt Vit D is low, continue vit d 2000units daily at bedtime. f/u in 3 months. Orders: Orders FL Modified Barium Swallow Today R13.10 - Dysphagia, unspecified Medications: Refilled cholecalciferol (vitamin D3) 50 mcg PO DAILY 90 caps 3RF Patient Instructions: sleep hygiene is reviewed with pt today. Coding Level of Care Code New Pt Level 4 (48579) Diagnoses TAL (obstructive sleep apnea) G47.33 Snoring R06.83 Excessive daytime sleepiness G47.19 Dysphagia, unspecified type R13.10 Dysphagia type: unspecified Difficulty swallowing solids R13.10
[2025-04-29 08:23] VITALS: BP 120/82; PULSE 79; O2SAT 94; BMI 33.5
== END 2025-04-29 09:03 | disposition home or self-care (01) ==
PROVIDERS: Visit Provider Physician Assistant Medical
DX: G47.33 Obstructive sleep apnea (adult) (pediatric) (principal); R06.83 Snoring; G47.19 Other hypersomnia; R13.10 Dysphagia, unspecified
CPT/HCPCS: 99204

== ENCOUNTER → 2025-04-29 08:13 | Outpatient (BNVA) | payer OTHER, SELFPAY | PROVIDERS: Visit Provider Physician Assistant Medical | DX: G47.33 Obstructive sleep apnea (adult) (pediatric) (principal); G47.19 Other hypersomnia; R06.83 Snoring; R13.10 Dysphagia, unspecified; Z79.899 Other long term (current) drug therapy | CPT/HCPCS: 99202 ==